=== PATIENT | male | born 1930 | race Caucasian/White ===

== ENCOUNTER 2017-06-01 11:06 | Inpatient (IN) | payer MEDICARE ==
--- NOTE | 2017-06-01 12:11 | RAD ---
PORTABLE CHEST: Date: 06/01/17 HISTORY: Altered mental status. Chest pain. Weakness. COMPARISON: 03/30/15. FINDINGS: Arm overlies the left upper lobe. The heart size is enlarged. Internal defibrillator device is presen t. The lungs are clear of any infiltrative process. IMPRESSION: Cardiomegaly. No acute changes. POS: [facility]
[2017-06-01 12:27] LABS: #Eosinphils 0.1 thou/uL (0.0-0.7); #Monocytes 0.8 thou/uL (0.11-0.59); #Neutrophils 13.9 thou/uL (1.40-6.50); %Basophils 0.3 % (0.0-1.0); %Eosinophils 0.7 % (0.0-10.0); %Lymphocytes 6.1 % (21.0-51.0); %Monocytes 5.1 % (0.0-10.0); Hematocrit 43.4 % (42.0-52.0); Mean Platelet Volume 7.4 fL (7.4-10.4); Red Blood Cell (RBC) Count 4.71 mill/uL (4.70-6.10); White Blood Cell (WBC) Count 15.8 thou/uL (4.8-10.8)
[2017-06-01 12:55] LABS: ALT (SGPT) 17 U/L (8-55); AST (SGOT) 31 U/L (5-34); Acetaminophen Less than 6.0 mcg/mL (10.0-30.0); Alkaline Phosphatase 62 U/L (40-150); Anion Gap 11 mmol/L (10-20); BUN (Urea Nitrogen) 22 mg/dL (8.4-25.7); Bilirubin, Total 1.1 mg/dL (0.2-1.2); CK (CPK) 214 U/L (30-200); Calc. Creatinine Clearance 0 mL/min (70-130); Carbon Dioxide 30 mmol/L (23-31); Chloride 101 mmol/L (98-107); Estimated GFR-MDRD 34; Globulin 3.2 g/dL (2.4-3.5); Protein, Total 7.7 g/dL (5.8-8.1); Salicylate Less than 8.0 mg/dL (15.0-30.0)
[2017-06-01 12:58] LABS: Troponin I 0.063 ng/mL (< 0.028)
[2017-06-01 13:10] LABS: Lactic Acid - Sepsis 1.5 mmol/L (0.5-2.2)
--- NOTE | 2017-06-01 13:18 | CT ---
CT BRAIN WITHOUT CONTRAST: Date: 06/01/17 HISTORY: Altered mental status. COMPARISON: CT brain dated 02/16/15. FINDINGS: Large dystrophic calcification in the right basal ganglia is similar. No hemorrhage. No large volume territorial infarct given the limitation of motion throughout the vertex. Moderate atrophy. Moderate microvascular ischemic changes, chronic. Paranasal sinuses and mastoids are clear. The orbits are unremarkable. IMPRESSION: Within the limits of this motion artifact examination, no acute intracranial abnormality. POS: [facility]
[2017-06-01] MEDS ORDERED: Azithromycin 500 MG VIAL ONE (14:12)
[2017-06-01] MEDS ORDERED: Bisacodyl 5 MG TAB PO PRN (16:35)
[2017-06-01] MEDS ORDERED: HYDROcodone/Acetaminophen 5/325 mg Tablet PO PRN (16:35)
[2017-06-01] MEDS ORDERED: traMADol HCl 50 MG TAB PO PRN (16:35)
[2017-06-01] MEDS ORDERED: Acetaminophen 325 MG TAB PO PRN (16:35)
[2017-06-01] MEDS ORDERED: Ondansetron HCl/PF 4 MG/2 ML Vial IVP PRN (16:35)
[2017-06-01] MEDS ORDERED: Nitroglycerin 0.4 MG TAB (25 Tab Bottle) SL PRN (16:35)
[2017-06-01] MEDS ORDERED: hydrALAZINE 20 MG/ML VIAL SLOW IVP PRN (16:35)
[2017-06-01] MEDS ORDERED: Dextrose 5% in Water 1,000 ML IV PRN (16:38)
[2017-06-01] MEDS ORDERED: Insulin Regular 300 UNITS/3 ML VIAL SC PRN ×2 (16:38)
[2017-06-01] MEDS ORDERED: Dextrose 50% Abboject 50 ML SYRINGE SLOW IVP PRN (16:38)
[2017-06-01] MEDS ORDERED: Sodium Chloride 0.9% 1,000 ML IV SCH (16:45)
--- NOTE | 2017-06-01 18:21 | HP ---
DATE OF ADMISSION: 06/01/2017 PRIMARY CARE PHYSICIAN: Danny Srinivasan M.D. REASON FOR ADMISSION: Altered mental status, suspected pneumonia. HISTORY OF PRESENT ILLNESS: Mr. Edinson Dickey is an 86-year-old male with a past medical history o f diabetes mellitus type 2, hypertension, hyperlipidemia, and coronary artery disease who presents to the emergency room after his daughter stated he was having altered mental status earlier this mornin g. He was evaluated by home health nurse at which time noted that he had some mild hypoxia with kurtis lar oximetry readings of 88%-90%. The daughter states he has not had any fevers. No nausea, vomitin g or diarrhea. He states that he did have mild stomach discomfort after his PCP changed him to metfo rmin approximately a week ago. No shortness of breath or chest pain reported. According to the daug hter, the patient is awake, alert, and oriented x3. He is ambulatory and does much of his activities of daily living. Denies any sick contacts or productive cough. Here in the emergency room, the pat ient remained mildly altered. Initial radiographic examination showed some opacities in his left upp er lung field. The patient's daughter states he does not have any difficulty swallowing. He is now being admitted to the telemetry floor for further evaluation. Currently, he is resting comfortably with no acute symptoms. PAST MEDICAL HISTORY: 1. Diabetes mellitus type 2. 2. Hypertension. 3. Hyperlipidemia. 4. Coronary artery disease. 5. History of urinary tract infection. PAST SURGICAL HISTORY: 1. Pacemaker placement in 2013. 2. Bilateral cataracts. CODE STATUS: He is FULL CODE. The patient's daughter is at bedside. SOCIAL HISTORY: The patient denies any current tobacco use; however, he smoked for approximately 20 years, 2 packs per day and he quit approximately 10 years ago. No alcohol or illicit drug use. CURRENT MEDICATIONS: 1. Metformin 500 mg p.o. b.i.d. 2. Glyburide 1 tablet p.o. daily. 3. Flomax 0.4 mg p.o. daily. 4. Zocor 80 mg p.o. at bedtime. 5. Proscar 5 mg p.o. daily. 6. Coreg 3.125 mg p.o. b.i.d. 7. Aspirin 81 mg p.o. daily. 8. Amlodipine 5 mg p.o. daily. 9. Ambien 10 mg p.o. at bedtime. 10. Altace 5 mg p.o. b.i.d. 11. Lasix 20 mg p.o. daily. 12. Colace 50 mg p.o. b.i.d. ALLERGIES: PENICILLIN. FAMILY HISTORY: Reviewed and noncontributory. REVIEW OF SYSTEMS: The following complete review of systems was negative, unless otherwise mentioned in the HPI or below: Constitutional: Weight loss or gain, sense of well-being, ability to conduct usual activities, exerc ise tolerance. Skin/Breast: Rash, itching, changes in hair growth or loss, nail changes, breast lumps, tenderness, swelling, nipple discharge. Eyes: Vision, double vision, tearing, blind spots, pain. ENT/Mouth: Headaches (location, time of onset, duration, precipitating factors), vertigo, lightheade dness, injury. Vision, double vision, tearing, blind spots, pain, nose bleeding, colds, obstruction, discharge, dental difficulties, gingival bleeding, dentures, neck stiffness, pain, tenderness, masses in thyroid or other areas Cardiovascular: Precordial pain, substernal distress, palpitations, syncope, dyspnea on exertion, or thopnea, nocturnal paroxysmal dyspnea, edema, cyanosis, hypertension, heart murmurs, varicosities, ph lebitis, claudication. Respiratory: Pain, shortness of breath, wheezing, stridor, cough, hemoptysis, fever or night sweats Gastrointestinal: Poor appetite, dysphagia, indigestion, abdominal pain, heartburn, eructation, naus ea, vomiting, hematemesis, jaundice, constipation, or diarrhea, abnormal stools (kurt-colored, tarry, bloody, greasy, foul smelling), flatulence, hemorrhoids, recent changes in bowel habits. Genitourinary: Urgency, frequency, dysuria, nocturia, hematuria, polyuria, oliguria, unusual (or debbie nge in) color of urine, stones, hesitancy, change in size of stream, dribbling, acute retention or in continence, libido, potency. Musculoskeletal: Pain, swelling, redness or heat of muscles or joints, limitation, of motion, muscul ar weakness, atrophy, cramps. Neurologic/Psychiatric: Convulsions, paralyses, tremor, incoordination, paraesthesias, difficulties with memory of speech, sensory or motor disturbances, or muscular coordination (ataxia, tremor), emot ional problems, anxiety, depression, previous psychiatric care, unusual perceptions, hallucinations. Allergy/Immunologic: Skin rash, anemia, bleeding tendency, polydipsia, polyuria, intolerance to heat or cold. PHYSICAL EXAMINATION: CONSTITUTIONAL/VITAL SIGNS: Blood pressure most recently 128/55, pulse is 80, O2 saturation is 97% o n room air, temperature 98.0, and respirations are 20. HEENT: Pupils are equal, round and reactive to light and accommodation. Extraocular muscles are int act. Oral: Moist oral mucosa. No lesions. RESPIRATORY: Equal chest wall expansion. He does have some rhonchi to the left upper lobe as well a s the left lower lobe and right lower lobe. No accessory muscle use. CARDIOVASCULAR: S1, S2 present. No murmurs, gallops or rubs. Pacemaker pocket present. GASTROINTESTINAL: Soft, nontender, nondistended. Bowel sounds are present in all 4 quadrants. MUSCULOSKELETAL: Good range of motion in all 4 extremities. No clubbing, no cyanosis. LYMPHATICS: No swollen or painful cervical or axillary lymph nodes. NEUROLOGIC: No ptosis, no facial asymmetry, no tongue deviation or jaw protrusion, no focal deficits . PSYCHIATRIC: He is awake and alert. He is oriented to person and place. SKIN: Normal skin turgor. LABORATORY DATA AND X-RAY FINDINGS: 1. Laboratory values taken in the emergency room and reviewed by me showed WBC 15.8, hemoglobin 14.6 , hematocrit 43.4, platelet count 166,000. Chemistry shows sodium of 138, potassium 4.2, chloride 10 1, carbon dioxide 30, anion gap 11, BUN is 22, creatinine 1.9. GFR 34, glucose is 146. Lactic acid is 1.5, calcium 10, total bilirubin 1.1, AST and ALT are 31 and 17, alkaline phosphatase is 62, AST 1 4, troponin is 0.063. BNP is 347.7. Tox screen shows salicylate less than 8. Acetaminophen less th an 6. 2. CT of the brain done in the emergency room revealed no acute intracranial abnormalities. 3. X-ray of the chest revealed cardiomegaly. There are no acute changes. There is a defibrillator device present. 4. EKG done in the emergency room reviewed by me revealed a left bundle branch block revealed normal sinus rhythm. He does have some inverted T waves in the lateral leads. ASSESSMENT AND PLAN: Mr. Edinson Dickey is an 86-year-old male with past medical history of diabete s mellitus type 2, hypertension, and hyperlipidemia who presents to the emergency room with a questio n of altered mental status which is now began to resolve. 1. Altered mental status. At this time, the patient will be admitted to the telemetry floor. His a ltered mental status may be secondary to an underlying infectious process. Start the patient on Leva lincoln therapy. Blood cultures have been ordered and we will adjust antibiotic therapy accordingly. W e will check urinalysis as well as a urine culture. At this time, he does not have any evidence of c ardiovascular accident. If he continues to have any further mental status changes, we will obtain a repeat CT scan of the brain. 2. Acute kidney injury. It is most likely secondary to an underlying infectious process as well as dehydration. We will continue with IV fluids and monitor. 3. Indeterminate troponin, it is most likely secondary to demand ischemia from underlying infectious processes. We will continue to trend and check echocardiogram. 4. Resume selected home medications. We will discontinue his metformin. 5. Diabetic diet. 6. Fall precautions. 7. P.r.n. order set. 8. FULL CODE. 9. I have explained all this to the patient's family at bedside. They are agreeable to the plan of treatment. All questions have been answered. The patient's further hospital course will be dictated by his clinical course while here.
[2017-06-01 18:55] LABS: Troponin I 0.075 ng/mL (< 0.028)
[2017-06-01] MEDS: Atorvastatin Calcium 40 MG TAB PO SCH (21:05)
[2017-06-01] MEDS: Carvedilol 3.125 MG TAB PO SCH (21:05)
[2017-06-01] MEDS: glyBURIDE 5 MG TAB PO SCH (21:05)
[2017-06-01 22:17] LABS: Troponin I 0.064 ng/mL (< 0.028)
[2017-06-02 04:59] LABS: Anion Gap 11 mmol/L (10-20); BUN (Urea Nitrogen) 23 mg/dL (8.4-25.7); Calc. Creatinine Clearance 51 mL/min (70-130); Calcium 9.1 mg/dL (7.8-10.44); Carbon Dioxide 28 mmol/L (23-31); Chloride 104 mmol/L (98-107); Estimated GFR-MDRD 40
[2017-06-02 05:04] LABS: #Eosinphils 0.1 thou/uL (0.0-0.7); #Lymphocytes 1.2 thou/uL (1.20-3.40); #Monocytes 0.9 thou/uL (0.11-0.59); #Neutrophils 10.8 thou/uL (1.40-6.50); %Basophils 0.3 % (0.0-1.0); %Eosinophils 0.7 % (0.0-10.0); %Lymphocytes 9.3 % (21.0-51.0); Mean Platelet Volume 7.8 fL (7.4-10.4); Red Blood Cell (RBC) Count 3.77 mill/uL (4.70-6.10); White Blood Cell (WBC) Count 13.1 thou/uL (4.8-10.8)
[2017-06-02 07:29] VITALS: BMI 32.6
[2017-06-02] MEDS: Aspirin 81 mg Enteric Coated Tablet PO SCH (09:48)
[2017-06-02] MEDS: Amlodipine 5 MG TAB PO SCH (09:48)
[2017-06-02] MEDS: Tamsulosin HCl 0.4 MG CAP PO SCH (09:48)
[2017-06-02] MEDS: Carvedilol 3.125 MG TAB PO SCH (09:49)
[2017-06-02] MEDS: Finasteride 5 MG TAB PO SCH (09:49)
[2017-06-02] MEDS: Enoxaparin Sodium 40 MG/0.4 ML SYRINGE SC SCH (09:49)
[2017-06-02 11:48] LABS: Bacteria/HPF None Seen HPF (None Seen); Bilirubin Negative (Negative); Blood, Urine Trace (Negative); Glucose, Urine (Dipstick) Negative (Negative); Hyaline Casts/LPF 0-3 HYALINE CAST LPF (0-3 Hyaline); Ketone, Urine Negative (Negative); Nitrite Negative (Negative); Protein, Urine (Dipstick) Negative (Neg-Trace); Squamous Epithelial None Seen HPF (0-3); Urobilinogen 0.2 mg/dL (0.2-1.0); WBC/HPF None Seen HPF (0-3)
--- NOTE | 2017-06-02 12:53 | PDOC.PN ---
- Subjective Encounter Start Date: 06/02/17 Encounter Start Time: 07:40 Pt seen for followup re; acute encephalopathy. Denies chest pain, shortness of breath, fevers or chills. Complains of cough with sputum. - Objective MAR Reviewed: Yes Vital Signs & Weight: Vital Signs (12 hours) Temp Pulse Resp BP Pulse Ox 06/02/17 11:20 98.2 F 63 18 120/58 L 95 06/02/17 11:15 95 06/02/17 08:00 98 F 62 16 06/02/17 07:25 98 F 62 16 133/66 95 06/02/17 04:00 98.6 F 63 18 129/58 L 94 L Weight Weight 254 lb 2 oz I&O: 06/01/17 06/02/17 06/03/17 06:59 06:59 06:59 Intake Total 780 Balance 780 Result Diagrams: 06/02/17 04:21 06/02/17 04:21 Additional Labs: Accuchecks 06/02/17 06/02/17 06/01/17 10:55 05:45 20:41 POC Glucose 93 86 145 H 06/01/17 17:18 POC Glucose 111 H EKG Reviewed by me: Yes (Tele: NSR) Phys Exam - Physical Examination Constitutional: NAD HEENT: PERRLA, moist MMs, sclera anicteric, oral pharynx no lesions Neck: no nodes, no JVD, supple, full ROM Respiratory: no wheezing, no rales, no rhonchi, clear to auscultation bilateral Cardiovascular: RRR, no rub Gastrointestinal: soft, non-tender, no distention, positive bowel sounds Neurological: moves all 4 limbs Psychiatric: normal affect Deviation from normal: Oriented to person and place, not to time Skin: no rash, normal turgor, cap refill <2 seconds Dx/Plan (1) Acute encephalopathy Code(s): G93.40 - ENCEPHALOPATHY, UNSPECIFIED Status: Acute (2) URTI (acute upper respiratory infection) Code(s): J06.9 - ACUTE UPPER RESPIRATORY INFECTION, UNSPECIFIED Status: Suspected (3) CHF (congestive heart failure) Code(s): I50.9 - HEART FAILURE, UNSPECIFIED Status: Chronic (4) Diabetes mellitus Code(s): E11.9 - TYPE 2 DIABETES MELLITUS WITHOUT COMPLICATIONS Status: Chronic (5) Hypertension Code(s): I10 - ESSENTIAL (PRIMARY) HYPERTENSION Status: Chronic - Plan continue antibiotics, PT/OT, out of bed/ambulate, DVT proph w/lovenox * . Continue antibiotics, await cultures. Monitor vital signs, titrate antihypertensives as needed. Continue accuchecks, insulin sliding scale. Ambulate pt. Review of Systems - Review of Systems Constitutional: negative: fever, chills, sweats, weakness, malaise Respiratory: Cough, Sputum. negative: Dry, Shortness of Breath, Hemoptysis, SOB with Excertion, Pleuritic Pain, Wheezing Cardiovascular: negative: chest pain, palpitations, orthopnea, paroxysmal nocturnal dyspnea, edema, light headedness Gastrointestinal: negative: Nausea, Vomiting, Abdominal Pain, Diarrhea, Constipation, Melena, Hematochezia Genitourinary: negative: Dysuria, Frequency, Incontinence, Hematuria, Retention - Medications/Allergies Allergies/Adverse Reactions: Allergies Allergy/AdvReac Type Severity Reaction Status Date / Time Penicillins Allergy Severe Verified 02/12/15 20:38 Medications: Current Medications Acetaminophen (Tylenol) 650 mg PO Q4H PRN PRN Reason: Headache/Fever or Pain Hydrocodone Bitart/Acetaminophen ([place] 5/325) 1 tab PO Q4H PRN PRN Reason: Moderate Pain (4-6) Amlodipine Besylate (Norvasc) 5 mg PO DAILY [facility] Last Admin: 06/02/17 09:48 Dose: 5 mg Aspirin (Ecotrin) 81 mg PO DAILY [facility] Last Admin: 06/02/17 09:48 Dose: 81 mg Atorvastatin Calcium (Lipitor) 40 mg PO HS [facility] Last Admin: 06/01/17 21:05 Dose: 40 mg Bisacodyl (Dulcolax) 10 mg PO DAILYPRN PRN PRN Reason: Constipation Carvedilol (Coreg) 3.125 mg PO BID [facility] Last Admin: 06/02/17 09:49 Dose: 3.125 mg Dextrose/Water (Dextrose 50%) 25 gm SLOW IVP PRN PRN PRN Reason: Hypoglycemia Enoxaparin Sodium (Lovenox) 40 mg SC 0900 [facility] Last Admin: 06/02/17 09:49 Dose: 40 mg Finasteride (Proscar) 5 mg PO DAILY [facility] Last Admin: 06/02/17 09:49 Dose: 5 mg Glucagon (Glucagon) 1 mg IM PRN PRN PRN Reason: Hypoglycemia Glyburide (Diabeta) 5 mg PO QPM [facility] Last Admin: 06/01/17 21:05 Dose: 5 mg Hydralazine HCl (Apresoline) 10 mg SLOW IVP Q4H PRN PRN Reason: Systolic BP > 180 Dextrose/Water (D5w) 1,000 mls @ 0 mls/hr IV .Q0M PRN; As Directed PRN Reason: Hypoglycemia Levofloxacin 500 mg/ Device 100 mls @ 100 mls/hr IVPB Q2D@1600 [facility] Insulin Human Regular (Humulin R) 0 units SC .MILD SLIDING SCALE PRN PRN Reason: Mild Correctional Scale Insulin Human Regular (Humulin R) 0 units SC .BEDTIME SLIDING SC PRN PRN Reason: Bedtime Correctional Scale Nitroglycerin (Nitrostat) 0.4 mg SL Q5MIN PRN PRN Reason: Chest Pain Ondansetron HCl (Zofran) 4 mg IVP Q6H PRN PRN Reason: Nausea/Vomiting Tamsulosin HCl (Flomax) 0.4 mg PO DAILY [facility] Last Admin: 06/02/17 09:48 Dose: 0.4 mg Tramadol HCl (Ultram) 50 mg PO Q4H PRN PRN Reason: Moderate Pain (4-6)
--- NOTE | 2017-06-02 17:36 | CON ---
DATE OF CONSULT: Patient is an unfortunate 86-year-old gentleman who presented with altered mental status and possible pneumonia. The patient has an apparent history of coronary artery disease. He has also a history of an ischemic cardiomyopathy. The patient apparently was brought in when he became more confused. The patient denies having any chest pain, palpitations, or dyspnea. PAST MEDICAL HISTORY: 1. Coronary artery disease. 2. Hypertension. 3. Hyperlipidemia. PAST SURGICAL HISTORY: He has a history of AICD placement SOCIAL HISTORY: Nonsmoker MEDICATIONS ON ADMISSION: See nursing list. ALLERGIES: PENICILLIN. REVIEW OF SYSTEMS: The patient is confused and unable to answer questions appropriately. PHYSICAL EXAMINATION: GENERAL: This is a confused gentleman in no acute distress with a blood pressure 143/65. NECK: No jugular venous distention. LUNGS: Clear to auscultation. HEART: Regular rate and rhythm, normal S1, S2 with a II/ systolic murmur. ABDOMEN: Distended. EXTREMITIES: Showed trace edema. SKIN: Warm and dry. NEUROLOGIC: Nonfocal. VASCULAR: Radial pulses are 2+. LABORATORY DATA: White blood count was 13.1, hemoglobin 11.9, hematocrit 35.0, and platelets 149. Sodium is 139, potassium 3.7, chloride 104, bicarbonate 20, BUN 23, creatinine 1.65, troponin 0.64. His EKG revealed normal sinus rhythm with an ST -T wave suggestive of lateral ischemia. Chest x-ray revealed cardiomegaly, otherwise unremarkable. traffic monitor specialist revealed nonsustained ventricular tachycardia. IMPRESSION: 1. Nonsustained ventricular tachycardia. 2. History of coronary artery disease. 3. History of cardiomyopathy. 4. History of AICD placement. 5. Diabetes mellitus. 6. Hypertension. This gentleman presents with altered mental status. He has a history of ischemic cardiomyopathy, also has placement of implantable cardiac defibrillator. From a cardiac standpoint, we will check an echocardiogram and increase the dose of his beta mary ann. He will continue to be treated with IV antibiotics. We will follow this patient with you through his hospitalization [facility]
[2017-06-02] MEDS: Atorvastatin Calcium 40 MG TAB PO SCH (20:44)
[2017-06-02] MEDS: glyBURIDE 5 MG TAB PO SCH (20:44)
[2017-06-02] MEDS: Carvedilol 6.25 MG TAB PO SCH (20:44)
[2017-06-03] MEDS: Carvedilol 6.25 MG TAB PO SCH ×2 (07:57→20:24)
[2017-06-03] MEDS: Finasteride 5 MG TAB PO SCH (07:57)
[2017-06-03] MEDS: Tamsulosin HCl 0.4 MG CAP PO SCH (07:57)
[2017-06-03 07:58] LABS: #Eosinphils 0.2 thou/uL (0.0-0.7); #Lymphocytes 0.9 thou/uL (1.20-3.40); #Monocytes 0.5 thou/uL (0.11-0.59); #Neutrophils 7.6 thou/uL (1.40-6.50); %Basophils 0.2 % (0.0-1.0); %Eosinophils 2.3 % (0.0-10.0); %Lymphocytes 9.8 % (21.0-51.0); %Monocytes 5.8 % (0.0-10.0); Hematocrit 37.6 % (42.0-52.0); Mean Platelet Volume 7.8 fL (7.4-10.4); Red Blood Cell (RBC) Count 4.06 mill/uL (4.70-6.10); White Blood Cell (WBC) Count 9.3 thou/uL (4.8-10.8)
[2017-06-03] MEDS: Amlodipine 5 MG TAB PO SCH (07:58)
[2017-06-03] MEDS: Aspirin 81 mg Enteric Coated Tablet PO SCH (07:58)
[2017-06-03] MEDS: Enoxaparin Sodium 40 MG/0.4 ML SYRINGE SC SCH (07:58)
[2017-06-03 08:02] LABS: Anion Gap 13 mmol/L (10-20); BUN (Urea Nitrogen) 19 mg/dL (8.4-25.7); Calc. Creatinine Clearance 58 mL/min (70-130); Calcium 9.3 mg/dL (7.8-10.44); Carbon Dioxide 23 mmol/L (23-31); Chloride 105 mmol/L (98-107); Estimated GFR-MDRD 46
--- NOTE | 2017-06-03 11:34 | PDOC.PN ---
- Subjective Encounter Start Date: 06/03/17 Encounter Start Time: 07:20 Pt seen for followup of acute encephalopathy. No complaints today. - Objective MAR Reviewed: Yes Vital Signs & Weight: Vital Signs (12 hours) Temp Pulse Resp BP Pulse Ox 06/03/17 08:15 98.0 F 70 16 06/03/17 07:58 70 06/03/17 07:20 98 F 61 18 120/99 H 93 L 06/03/17 05:02 98.4 F 70 18 142/56 H 97 06/02/17 23:52 97.8 F 66 18 140/62 92 L Weight Admit Weight 254 lb Weight 251 lb 11.2 oz I&O: 06/02/17 06/03/17 06/04/17 06:59 06:59 06:59 Intake Total 1520 Balance 1520 Result Diagrams: 06/03/17 07:36 06/03/17 07:36 Additional Labs: Accuchecks 06/03/17 06/03/17 06/02/17 10:49 05:53 20:42 POC Glucose 174 H 71 76 06/02/17 17:15 POC Glucose 84 EKG Reviewed by me: Yes (Tele: A-paced) Phys Exam - Physical Examination Obese HEENT: moist MMs Neck: supple Respiratory: clear to auscultation bilateral Cardiovascular: RRR Gastrointestinal: soft Neurological: moves all 4 limbs Psychiatric: normal affect Skin: no rash Dx/Plan (1) Acute encephalopathy Code(s): G93.40 - ENCEPHALOPATHY, UNSPECIFIED Status: Acute (2) URTI (acute upper respiratory infection) Code(s): J06.9 - ACUTE UPPER RESPIRATORY INFECTION, UNSPECIFIED Status: Suspected (3) CHF (congestive heart failure) Code(s): I50.9 - HEART FAILURE, UNSPECIFIED Status: Chronic (4) Diabetes mellitus Code(s): E11.9 - TYPE 2 DIABETES MELLITUS WITHOUT COMPLICATIONS Status: Chronic (5) Hypertension Code(s): I10 - ESSENTIAL (PRIMARY) HYPERTENSION Status: Chronic (6) NSVT (nonsustained ventricular tachycardia) Code(s): I47.2 - VENTRICULAR TACHYCARDIA Status: Resolved - Plan continue antibiotics, PT/OT, out of bed/ambulate, DVT proph w/lovenox * . Continue IV antibiotics, await blood cultures. Appreciate cardiology input, beta mary ann dose increased due to NSVT. Ambulate patient. Review of Systems - Review of Systems Respiratory: Cough, Sputum. negative: Dry, Shortness of Breath, Hemoptysis, SOB with Excertion, Pleuritic Pain, Wheezing Cardiovascular: negative: chest pain, palpitations, orthopnea, paroxysmal nocturnal dyspnea, edema, light headedness Genitourinary: negative: Dysuria, Frequency, Incontinence, Hematuria, Retention - Medications/Allergies Allergies/Adverse Reactions: Allergies Allergy/AdvReac Type Severity Reaction Status Date / Time Penicillins Allergy Severe Verified 02/12/15 20:38 Medications: Current Medications Acetaminophen (Tylenol) 650 mg PO Q4H PRN PRN Reason: Headache/Fever or Pain Hydrocodone Bitart/Acetaminophen ([place] 5/325) 1 tab PO Q4H PRN PRN Reason: Moderate Pain (4-6) Amlodipine Besylate (Norvasc) 5 mg PO DAILY [facility] Last Admin: 06/03/17 07:58 Dose: 5 mg Aspirin (Ecotrin) 81 mg PO DAILY [facility] Last Admin: 06/03/17 07:58 Dose: 81 mg Atorvastatin Calcium (Lipitor) 40 mg PO HS [facility] Last Admin: 06/02/17 20:44 Dose: 40 mg Bisacodyl (Dulcolax) 10 mg PO DAILYPRN PRN PRN Reason: Constipation Carvedilol (Coreg) 6.25 mg PO BID [facility] Last Admin: 06/03/17 07:57 Dose: 6.25 mg Dextrose/Water (Dextrose 50%) 25 gm SLOW IVP PRN PRN PRN Reason: Hypoglycemia Enoxaparin Sodium (Lovenox) 40 mg SC 0900 [facility] Last Admin: 06/03/17 07:58 Dose: 40 mg Finasteride (Proscar) 5 mg PO DAILY [facility] Last Admin: 06/03/17 07:57 Dose: 5 mg Glucagon (Glucagon) 1 mg IM PRN PRN PRN Reason: Hypoglycemia Glyburide (Diabeta) 5 mg PO QPM [facility] Last Admin: 06/02/17 20:44 Dose: 5 mg Hydralazine HCl (Apresoline) 10 mg SLOW IVP Q4H PRN PRN Reason: Systolic BP > 180 Dextrose/Water (D5w) 1,000 mls @ 0 mls/hr IV .Q0M PRN; As Directed PRN Reason: Hypoglycemia Levofloxacin 500 mg/ Device 100 mls @ 100 mls/hr IVPB Q2D@1600 [facility] Insulin Human Regular (Humulin R) 0 units SC .MILD SLIDING SCALE PRN PRN Reason: Mild Correctional Scale Insulin Human Regular (Humulin R) 0 units SC .BEDTIME SLIDING SC PRN PRN Reason: Bedtime Correctional Scale Nitroglycerin (Nitrostat) 0.4 mg SL Q5MIN PRN PRN Reason: Chest Pain Ondansetron HCl (Zofran) 4 mg IVP Q6H PRN PRN Reason: Nausea/Vomiting Tamsulosin HCl (Flomax) 0.4 mg PO DAILY [facility] Last Admin: 06/03/17 07:57 Dose: 0.4 mg Tramadol HCl (Ultram) 50 mg PO Q4H PRN PRN Reason: Moderate Pain (4-6)
[2017-06-03] MEDS: Atorvastatin Calcium 40 MG TAB PO SCH (20:24)
[2017-06-03] MEDS: glyBURIDE 5 MG TAB PO SCH (20:24)
--- NOTE | 2017-06-04 07:36 | DIS ---
TRANSFER OF CARE NOTE DISCHARGE DISPOSITION: Home. PRIMARY CARE PROVIDER: Dr. Danny Srinivasan FINAL DIAGNOSES: 1. Acute encephalopathy, resolved. 2. Acute upper respiratory infection. 3. Nonsustained V-tach. 4. Coronary artery disease. 5. Hypertension. 6. Diabetes mellitus type 2. DISCHARGE MEDICATIONS: Colace 50 mg twice a day, tramadol 50 mg p.o. b.i.d. p.r.n., metformin 850 mg p.o. b.i.d., tolterodine tartrate 4 mg p.o. daily, Flomax 0.4 mg daily, gabapentin 300 mg at bedtime , Zocor 80 mg a day, Levaquin 500 mg a day for 7 days, Coreg 6.25 mg twice a day. ALLERGIES: PENICILLINS. FOLLOWUP: Blood cultures are no growth at 48 hours as is urine culture. HOSPITAL COURSE: The patient admitted to [facility] with altered mental status, suspected pneumonia. On admission to the hospital, his physical exam was not remarkable. La boratory revealed elevated white count of 15.8, platelet count 166,000, hemoglobin 14.6. Initial com p metabolic profile revealed a creatinine of 1.9, BUN 22, blood sugar 146. Electrolytes are balanced . Troponin 0.06, 0.075 0.064. Blood and urine cultures were started. Chest x-ray was clear. The p atient was placed on IV Levaquin. He had an episode of nonsustained ventricular tachycardia during h is hospital stay, was seen in consultation by Dr. Raymond Worley, Cardiology. His Coreg was increased from 3.125 twice a day to 6.25 twice a day. Echocardiogram revealed EF of 60-65%. The patient impr belen steadily during his hospital stay. The physical exam is still unremarkable. Creatinine dropped to 1.46. Blood sugars stayed in the 71-174 range. His chest is clear. Vital signs are stable. He is being discharged home for followup in [address] Danny Srinivasan. Prescriptions have been written for Coreg 6.25 twice a day and for Levaquin 500 mg once a day for 7 days. No procedures were done d uring this hospital stay.
[2017-06-04] MEDS: Amlodipine 5 MG TAB PO SCH (08:25)
[2017-06-04] MEDS: Carvedilol 6.25 MG TAB PO SCH (08:26)
[2017-06-04] MEDS: Finasteride 5 MG TAB PO SCH (08:26)
[2017-06-04] MEDS: Aspirin 81 mg Enteric Coated Tablet PO SCH (08:26)
[2017-06-04] MEDS: Tamsulosin HCl 0.4 MG CAP PO SCH (08:26)
[2017-06-04] MEDS: Enoxaparin Sodium 40 MG/0.4 ML SYRINGE SC SCH (08:26)
[2017-06-04 12:08] VITALS: BP 115/57; TEMP 98.2
== END 2017-06-04 13:18 | disposition home or self-care (01) | DRG 152 ==
LOC: ERS 11:06 → 2SE 16:56
PROVIDERS: ADMIT Hospitalist; ATTEND Hospitalist
DX: J06.9 Acute upper respiratory infection, unspecified (principal); G93.40 Encephalopathy, unspecified; I47.2 Ventricular tachycardia; I24.8 Other forms of acute ischemic heart disease; N17.9 Acute kidney failure, unspecified; E11.9 Type 2 diabetes mellitus without complications; E86.0 Dehydration; I44.7 Left bundle-branch block, unspecified; I10 Essential (primary) hypertension; E78.5 Hyperlipidemia, unspecified; I25.10 Atherosclerotic heart disease of native coronary artery without angina pectoris; Z95.0 Presence of cardiac pacemaker; Z87.891 Personal history of nicotine dependence; Z79.84 Long term (current) use of oral hypoglycemic drugs; Z79.82 Long term (current) use of aspirin; Z88.0 Allergy status to penicillin; I25.5 Ischemic cardiomyopathy; I50.9 Heart failure, unspecified
CPT/HCPCS: 36415; 36416; 70450; 71010; 80048; 80053; 80307; 81003; 81015; 82553; 83605; 83880; 84443; 84484; 85025; 87040; 87086; 93005; 93306; 96365; 96375; J0456; J0696; J1650; J1956

== ENCOUNTER 2017-07-20 16:11 | Observation (INO) | payer MEDICARE ==
--- NOTE | 2017-07-20 16:32 | CT ---
NONCONTRAST CT HEAD 07/20/17 HISTORY: Left sided facial droop and left sided weakness. Slurred speech. Last time patient was noted to be no rmal was at approximately 1500 hours. Altered mental status. COMPARISON: 06/01/17. FINDINGS: There is a dense calcification seen within the right basal ganglia stable from prior exam. Again note d are mild chronic small vessel ischemic changes and cerebral volume loss. There is no evidence of an acute cortical infarction, hemorrhage, mass effect or midline shift. Ventricular system is normal in size, shape and position for the degree of sulcal atrophy. There has been no interval change from pr ior exam. IMPRESSION: No acute intracranial abnormality demonstrated. The above findings were discussed with Dr. Prema Mercedes's nurse in the Emergency Department on 07/20 at 1623 hours. POS: [facility]
[2017-07-20 16:42] LABS: #Eosinphils 0.2 thou/uL (0.0-0.7); #Monocytes 0.4 thou/uL (0.11-0.59); %Basophils 0.6 % (0.0-1.0); %Eosinophils 3.7 % (0.0-10.0); %Lymphocytes 17.4 % (21.0-51.0); %Monocytes 6.7 % (0.0-10.0); %Neutrophils 71.6 % (42.0-75.0); Hemoglobin 13.4 g/dL (14.0-18.0); Mean Corpuscular HGB CONC 31.8 g/dL (32.0-36.0); Mean Corpuscular Hemoglobin 30.1 pg (27.0-31.0); Mean Corpuscular Volume 94.6 fl (80.0-94.0); Mean Platelet Volume 7.3 fL (7.4-10.4); Platelet Count 175 thou/uL (130-400); RBC Distribution Width 12.8 % (11.5-14.5); Red Blood Cell (RBC) Count 4.44 mill/uL (4.70-6.10); White Blood Cell (WBC) Count 5.5 thou/uL (4.8-10.8)
[2017-07-20 16:50] LABS: PTT 30.6 SEC (22.9-36.1); Prothrombin Time 13.4 SEC (12.0-14.7)
--- NOTE | 2017-07-20 17:00 | RAD ---
PORTABLE CHEST ONE VIEW: 07/20/17 at 4:39 p.m. HISTORY: Altered mental status, slurred speech, left sided facial droop and left sided weakness. FINDINGS: comparison made with exam of 06/01/17. Left sided AICD remains in place. The heart is enlarged. The aorta is tortuous. The lungs are expande d without focal areas of consolidation, pneumothorax, faisal pulmonary edema or pleural effusions. IMPRESSION: No radiographic evidence of acute cardiopulmonary process. POS: [facility]
[2017-07-20 17:02] LABS: ALT (SGPT) 11 U/L (8-55); AST (SGOT) 24 U/L (5-34); Alkaline Phosphatase 57 U/L (40-150); Anion Gap 12 mmol/L (10-20); BUN (Urea Nitrogen) 22 mg/dL (8.4-25.7); Bilirubin, Total 0.5 mg/dL (0.2-1.2); CK (CPK) 71 U/L (30-200); Calc. Creatinine Clearance 0 mL/min (70-130); Calcium 9.5 mg/dL (7.8-10.44); Carbon Dioxide 28 mmol/L (23-31); Chloride 103 mmol/L (98-107); Estimated GFR-MDRD 43; Globulin 2.6 g/dL (2.4-3.5); Glucose 131 mg/dL (83-110); Potassium 4.6 mmol/L (3.5-5.1); Protein, Total 6.6 g/dL (5.8-8.1); Sodium 138 mmol/L (136-145)
[2017-07-20 17:04] LABS: Troponin I 0.033 ng/mL (< 0.028)
[2017-07-20] MEDS ORDERED: Sodium Chloride 0.9% 1,000 ML IV SCH (20:15)
[2017-07-20 20:23] VITALS: BMI 32.3
[2017-07-20] MEDS ORDERED: HumaLOG 300 UNITS/3 ML VIAL SC PRN ×2 (22:49)
[2017-07-20] MEDS ORDERED: Dextrose 5% in Water 1,000 ML IV PRN (22:49)
[2017-07-20] MEDS ORDERED: Dextrose 50% Abboject 50 ML SYRINGE SLOW IVP PRN (22:49)
[2017-07-21] MEDS ORDERED: Dextrose 5% in Water 1,000 ML IV PRN (12:14)
[2017-07-21] MEDS ORDERED: Senokot 8.6 MG TAB PO PRN (12:14)
[2017-07-21] MEDS ORDERED: traMADol HCl 50 MG TAB PO PRN (12:14)
[2017-07-21] MEDS ORDERED: HumaLOG 300 UNITS/3 ML VIAL SC PRN ×2 (12:14)
[2017-07-21] MEDS ORDERED: Dextrose 50% Abboject 50 ML SYRINGE SLOW IVP PRN (12:14)
[2017-07-21] MEDS ORDERED: Guaifenesin DM 100-10/5 ML UDCUP PO PRN (12:14)
[2017-07-21] MEDS ORDERED: Acetaminophen 325 MG TAB PO PRN (12:14)
[2017-07-21] MEDS: Furosemide 40 MG/4 ML VIAL SLOW IVP SCH (13:15)
[2017-07-21] MEDS: Levofloxacin 750 mg/D5W 500 MG in Premix Bag 1 BAG IVPB SCH (13:19)
--- NOTE | 2017-07-21 16:42 | HP ---
REASON FOR ADMISSION: Mild chronic obstructive pulmonary disease exacerbation and mild CHF exacerbat ion. HISTORY OF PRESENTING ILLNESS: The patient apparently was coughing and had drooling around 3:00 p.m. when home health nurse came to check on him yesterday. He had left face drooling and was not able t o talk. He has had cough with expectoration of yellow thick sputum. He also could not lift his left upper extremity. The home health nurse summoned EMS. EMS took 45 minutes to reach ER here. On arr ival in the emergency room, patient was completely back to his baseline, talking with no weakness or drooling. He still had persistent cough. Currently, he has no complaints of chest pain, palpitation s or PND. PAST MEDICAL AND SURGICAL HISTORY: History of hypertension, diabetes mellitus type 2, dyslipidemia, benign prostatic hypertrophy, pacemaker, cataract surgery, coronary artery disease. CURRENT MEDICATIONS: Patient is on metformin 850 mg twice daily, simvastatin 80 mg p.o. at bedtime, Flomax 0.4 mg p.o. daily, tolterodine 4 mg p.o. daily, Ultram 50 mg twice daily p.r.n., gabapentin 30 0 mg p.o. at bedtime, Proscar 5 mg p.o. daily, Colace 50 mg daily, vitamin D3 400 units p.o. daily, a nd Coreg 6.25 mg p.o. twice daily. ALLERGIES: PENICILLIN. PERSONAL HISTORY: Does not abuse alcohol or drugs. Quit smoking more than 10 years ago, has smoked for nearly 20 years with 2 packs per day then. His daughter stays with the patient and he walks with a rolling walker. FAMILY HISTORY: Mother at the age of 82 years. Father also lived more or less the same [facility] as of his mom, but he cannot recall the exact cause of his . REVIEW OF SYSTEMS: The following complete review of systems was negative, unless otherwise mentioned in the HPI or below: Constitutional: Weight loss or gain, ability to conduct usual activities. Skin: Rash, itching. Eyes: Double vision, pain. ENT/Mouth: Nose bleeding, neck stiffness, pain, tenderness. Cardiovascular: Palpitations, dyspnea on exertion, orthopnea. Respiratory: Shortness of breath, wheezing, cough, hemoptysis, fever or night sweats. Gastrointestinal: Poor appetite, abdominal pain, heartburn, nausea, vomiting, constipation, or diarr hea. Genitourinary: Urgency, frequency, dysuria, nocturia. Musculoskeletal: Pain, swelling. Neurologic/Psychiatric: Anxiety, depression. Allergy/Immunologic: Skin rash, bleeding tendency. PHYSICAL EXAMINATION: GENERAL: The patient is an 87-year-old male who is currently not in any acute distress. VITAL SIGNS: Blood pressure 160/76, pulse 60 per minute, respiratory rate 14 per minute, temperature 98.8 degrees Fahrenheit, saturating 96% on room air. NECK: Supple, no elevated JVD. HEENT: Extraocular muscles intact. Pupils reacting to light. Oral cavity; mucous membranes are tomasa st. No exudates or congestion. CARDIOVASCULAR: S1, S2 heard. Regular rhythm. RESPIRATORY: Air entry 1+ bilateral. Scattered rhonchi plus bilateral, wheezes plus bilaterally. ABDOMEN: Soft, bowel sounds heard. No tenderness, rigidity or guarding. EXTREMITIES: No peripheral edema or calf tenderness. VASCULAR SYSTEM: Peripheral pulses 1+ bilateral. No ischemic ulcerations or gangrene. CENTRAL NERVOUS SYSTEM: No gross focal deficits seen. Patient is awake and responds well to verbal communication. PSYCHIATRIC: No obvious hallucinations or delusions. IMAGING DATA AND LABORATORY DATA: Chest x-ray done shows no acute cardiopulmonary abnormalities. CT brain done shows no acute intracranial abnormalities. There is old dense calcification seen in the right basal ganglia. Troponin I 0.03. BNP is 406, BUN 22, and creatinine 1.5. Electrolytes are sta ble. Liver enzymes within normal limits. Albumin is 4.0. PT/INR within normal limits. White count of 5, hemoglobin and hematocrit 13 and 41, platelet count 175, MCV is 94 with 71% neutrophils. EKG done shows paced rhythm at 60 beats per minute. There are nonspecific ST-T wave changes. CLINICAL IMPRESSION AND PLAN: The patient will be under observation on telemetry for mild chronic ob structive pulmonary disease exacerbation, mild congestive heart failure exacerbation. There is no cl inical evidence of stroke, although he came with left-sided weakness, drooling per family. All of th is got resolved in the ER itself by the time he arrived. He will be on aspirin, Coreg, empiric Levaq uin, DuoNebs, Lasix, just 3 doses of IV, finasteride, metformin, Flomax and trospium as before. We w ill also continue his Zocor and Glucophage as before. No further workup for stroke will be done unle ss patient becomes symptomatic again. The plan is to gently diurese him with bronchodilators and see if he perks up by tomorrow. He is at his baseline functional status, walking with a rolling walker. He will be discharged home. We will continue to closely monitor him on telemetry. Please note pat moshe has a followup appointment to see Dr. Frost on 08/12/2016 for an episode of nonsustained ventricu lar tachycardia which he had during his hospitalization here in May.
[2017-07-21] MEDS: metFORMIN 850 MG TAB PO SCH (17:49)
[2017-07-21] MEDS ORDERED: Famotidine 20 MG TAB PO SCH (21:00)
[2017-07-21] MEDS ORDERED: Gabapentin 300 MG CAP PO SCH (21:00)
[2017-07-21] MEDS ORDERED: Simvastatin 40 MG TAB PO SCH (21:00)
[2017-07-21] MEDS: Carvedilol 6.25 MG TAB PO SCH (21:04)
[2017-07-21] MEDS: TROSPIUM 20 MG TABLET PO SCH (21:05)
[2017-07-22 05:28] LABS: #Basophils 0.1 thou/uL (0.0-0.2); #Eosinphils 0.2 thou/uL (0.0-0.7); #Lymphocytes 1.3 thou/uL (1.20-3.40); #Monocytes 0.5 thou/uL (0.11-0.59); #Neutrophils 4.1 thou/uL (1.40-6.50); %Basophils 0.8 % (0.0-1.0); %Eosinophils 3.5 % (0.0-10.0); %Monocytes 7.9 % (0.0-10.0); %Neutrophils 66.9 % (42.0-75.0); Hemoglobin 12.9 g/dL (14.0-18.0); Mean Corpuscular HGB CONC 33.1 g/dL (32.0-36.0); Mean Corpuscular Hemoglobin 30.7 pg (27.0-31.0); Mean Corpuscular Volume 92.9 fl (80.0-94.0); Mean Platelet Volume 7.3 fL (7.4-10.4); Platelet Count 186 thou/uL (130-400); RBC Distribution Width 12.6 % (11.5-14.5); Red Blood Cell (RBC) Count 4.21 mill/uL (4.70-6.10); White Blood Cell (WBC) Count 6.2 thou/uL (4.8-10.8)
[2017-07-22 05:46] LABS: Anion Gap 11 mmol/L (10-20); BUN (Urea Nitrogen) 20 mg/dL (8.4-25.7); Calc. Creatinine Clearance 51 mL/min (70-130); Calcium 9.3 mg/dL (7.8-10.44); Carbon Dioxide 32 mmol/L (23-31); Chloride 101 mmol/L (98-107); Estimated GFR-MDRD 40; Glucose 108 mg/dL (83-110); Potassium 3.6 mmol/L (3.5-5.1); Sodium 140 mmol/L (136-145)
[2017-07-22] MEDS: Furosemide 40 MG/4 ML VIAL SLOW IVP SCH (06:44)
[2017-07-22] MEDS ORDERED: Docusate Sodium 100 MG/10 ML UDCUP PO SCH (09:00)
[2017-07-22] MEDS ORDERED: Lisinopril 2.5 MG TAB PO SCH (09:00)
[2017-07-22] MEDS ORDERED: Finasteride 5 MG TAB PO SCH (09:00)
[2017-07-22] MEDS ORDERED: Enoxaparin Sodium 40 MG/0.4 ML SYRINGE SC SCH (09:00)
[2017-07-22] MEDS ORDERED: Tamsulosin HCl 0.4 MG CAP PO SCH (09:00)
[2017-07-22] MEDS: TROSPIUM 20 MG TABLET PO SCH (09:07)
[2017-07-22] MEDS: metFORMIN 850 MG TAB PO SCH (09:08)
[2017-07-22] MEDS: Carvedilol 6.25 MG TAB PO SCH (09:09)
--- NOTE | 2017-07-22 10:57 | PDOC.PN ---
- Subjective Encounter Start Date: 07/22/17 Encounter Start Time: 09:00 Subjective: no sob/palp/chest pain, feels better -: is amb in room, ate his breakfast -: no weakness in any extremities - Objective Resuscitation Status: Resuscitation Status FULL:Full Resuscitation MAR Reviewed: Yes Vital Signs & Weight: Vital Signs (12 hours) Temp Pulse Resp BP BP Pulse Ox 07/22/17 09:09 155/85 H 07/22/17 09:07 65 155/85 H 07/22/17 08:19 91 L 07/22/17 08:17 65 16 07/22/17 08:00 97.5 F L 65 18 155/85 H 155/85 H 91 L 07/22/17 07:00 97.5 F L 65 18 155/85 H 91 L 07/22/17 04:06 97.7 F 66 16 152/85 H 95 07/22/17 00:19 67 16 Weight Weight 249 lb I&O: 07/21/17 07/22/17 07/23/17 06:59 06:59 06:59 Intake Total 1035 180 Output Total 0 100 Balance 1035 80 Result Diagrams: 07/22/17 05:07 07/22/17 05:07 Additional Labs: Accuchecks 07/22/17 07/21/17 07/21/17 05:27 21:24 17:16 POC Glucose 102 127 H 98 07/21/17 10:49 POC Glucose 182 H Phys Exam - Physical Examination HEENT: PERRLA, moist MMs Neck: no JVD, supple Respiratory: no wheezing, no rales Cardiovascular: RRR, no significant murmur Gastrointestinal: soft, non-tender, positive bowel sounds Musculoskeletal: no edema, pulses present Neurological: non-focal, moves all 4 limbs Psychiatric: A&O x 3 Dx/Plan (1) COPD (chronic obstructive pulmonary disease) Status: Acute Qualifiers: COPD type: COPD with acute exacerbation Qualified Code(s): J44.1 - Chronic obstructive pulmonary disease with (acute) exacerbation Comment: resolving, mild (2) CHF (congestive heart failure) Code(s): I50.9 - HEART FAILURE, UNSPECIFIED Status: Chronic Qualifiers: Congestive heart failure type: diastolic Congestive heart failure chronicity: acute on chronic Qualified Code(s): I50.33 - Acute on chronic diastolic (congestive) heart failure (3) CKD (chronic kidney disease) stage 3, GFR 30-59 ml/min Code(s): N18.3 - CHRONIC KIDNEY DISEASE, STAGE 3 (MODERATE) Status: Chronic (4) Diabetes mellitus Code(s): E11.9 - TYPE 2 DIABETES MELLITUS WITHOUT COMPLICATIONS Status: Chronic Qualifiers: Diabetes mellitus type: type 2 Diabetes mellitus complication status: with kidney complications Diabetes mellitus complication detail: with chronic kidney disease Diabetes mellitus [facility] insulin use: without ocean transportation intermediary use Chronic kidney disease stage: stage 3 (moderate) Qualified Code(s): E11.22 - Type 2 diabetes mellitus with diabetic chronic kidney disease; N18.3 - Chronic kidney disease, stage 3 (moderate); N18.3 - Chronic kidney disease, stage 3 (moderate) (5) Hypertension Code(s): I10 - ESSENTIAL (PRIMARY) HYPERTENSION Status: Chronic Qualifiers: Hypertension type: essential hypertension Qualified Code(s): I10 - Essential (primary) hypertension (6) Dyslipidemia Code(s): E78.5 - HYPERLIPIDEMIA, UNSPECIFIED Status: Chronic - Plan hemostable -: add lisinopril to coreg, lasix small dose -: alb inhaler, oral levaq for 4 days -: dc pt home -: to f/u with PCP in 1 week. * .
[2017-07-22 12:09] VITALS: BP 132/79; TEMP 98
[2017-07-22] MEDS: Levofloxacin 750 mg/D5W 500 MG in Premix Bag 1 BAG IVPB SCH (14:27)
--- NOTE | 2017-07-22 22:59 | DIS ---
DATE OF ADMISSION: 07/20/2017 DATE OF DISCHARGE: 07/22/2017 DISCHARGE DISPOSITION: To home. PRIMARY DISCHARGE DIAGNOSES: Mild chronic obstructive pulmonary disease exacerbation, resolved; mild congestive heart failure exacerbation, resolved. SECONDARY DISCHARGE DIAGNOSES: Diabetes mellitus type 2, chronic kidney disease stage 3, hypertensio n, dyslipidemia. PROCEDURES DONE DURING HOSPITALIZATION: The patient has had chest x-ray done showed no acute infiltr ate. CT brain done showed no acute intracranial abnormality. There is an old dense calcification se en in the right basal ganglia, which is stable from prior exam. Blood cultures x2. Preliminary resu lts are negative. H and H 12 and 39. White count of 6 with 66% neutrophils. Discharge BUN and crea tinine is 20 and 1.6. BNP 406. Troponin I was indeterminate at 0.03, CK-MB 3.0. DISCHARGE MEDICATIONS: Albuterol inhaler q.6 hourly p.r.n., aspirin 81 mg p.o. daily, Coreg 6.25 mg p.o. twice daily, vitamin D3 of 400 units p.o. daily, Colace 50 mg p.o. daily, Proscar 5 mg p.o. anson y, Lasix 20 mg p.o. daily, gabapentin 300 mg p.o. at bedtime, Levaquin 250 mg p.o. daily for another 4 days, lisinopril 2.5 mg p.o. daily, metformin 850 mg p.o. twice daily, K-Dur 20 mEq on alternate da ys while taking Lasix, Zocor 80 mg p.o. at bedtime, Flomax 0.4 mg p.o. daily, tolterodine 4 mg p.o. d aily, Ultram 50 mg twice daily p.r.n. ALLERGIES: PENICILLIN. DISCHARGE PLAN: Patient is to follow up with primary care physician in 1 week. BRIEF COURSE DURING HOSPITALIZATION: The patient initially was brought to the ER after he had episod es of coughing and drooling and was unable to lift his left upper extremity per home health nurse who saw him at home around 3:00 p.m. yesterday. He was essentially brought to the ER for stroke alert. On arrival in the ER, patient essentially got back to his baseline with no weakness or drooling. He still had persistent cough. The patient was essentially placed under observation for mild COPD and mild CHF exacerbation with diastolic dysfunction. He was gently diuresed during his stay here. He w as also empirically placed on Levaquin for his pulmonary disease flareup. The patient received 3 dos es of 40 mg IV Lasix. This morning, he is ambulating and eating well. He is hemodynamically stable and appears to be at his baseline. He will be shortly discharged home. He needs to follow up with h is primary care physician in 1 week. Please note patient was placed on Lasix 20 mg daily along with alternate day potassium. The patient has known history of chronic kidney disease, stage 3 and this n eeds to be closely monitored with him being on a very small dose of lisinopril at 2.5 mg daily. Adilson small see a face to face documentation on [email or web address] for the day of discharge.
== END 2017-07-22 14:25 | disposition home or self-care (01) ==
LOC: ERS 16:11 → 2SE 19:38
PROVIDERS: ADMIT Internal Medicine; ATTEND Internal Medicine
DX: J44.1 Chronic obstructive pulmonary disease with (acute) exacerbation (principal); I13.0 Hypertensive heart and chronic kidney disease with heart failure and stage 1 through stage 4 chronic kidney disease, or unspecified chronic kidney disease; E11.22 Type 2 diabetes mellitus with diabetic chronic kidney disease; N18.3 Chronic kidney disease, stage 3 (moderate); I50.33 Acute on chronic diastolic (congestive) heart failure; E78.5 Hyperlipidemia, unspecified; Z88.0 Allergy status to penicillin; Z79.899 Other long term (current) drug therapy; Z87.891 Personal history of nicotine dependence
CPT/HCPCS: 36415; 36416; 70450; 71045; 80048; 80053; 82550; 82553; 83880; 84484; 85025; 85610; 85730; 86850; 86900; 86901; 87040; 93005; 94640; 96361; 96372; 96374; 96375; 96376; G0378; J1650; J1940; J1956; J7620

== ENCOUNTER 2017-07-23 17:36 | Inpatient (IN) | payer MEDICARE ==
[2017-07-23 18:11] LABS: #Eosinphils 0.1 thou/uL (0.0-0.7); #Monocytes 0.9 thou/uL (0.11-0.59); #Neutrophils 10.5 thou/uL (1.40-6.50); %Basophils 0.1 % (0.0-1.0); %Lymphocytes 8.3 % (21.0-51.0); %Monocytes 6.9 % (0.0-10.0); %Neutrophils 83.7 % (42.0-75.0); Hemoglobin 14.2 g/dL (14.0-18.0); Mean Corpuscular HGB CONC 32.9 g/dL (32.0-36.0); Mean Corpuscular Hemoglobin 30.8 pg (27.0-31.0); Mean Corpuscular Volume 93.7 fl (80.0-94.0); Mean Platelet Volume 7.7 fL (7.4-10.4); Platelet Count 198 thou/uL (130-400); RBC Distribution Width 12.8 % (11.5-14.5); White Blood Cell (WBC) Count 12.6 thou/uL (4.8-10.8)
[2017-07-23 18:19] LABS: Prothrombin Time 13.5 SEC (12.0-14.7)
[2017-07-23 18:30] LABS: ALT (SGPT) 11 U/L (8-55); AST (SGOT) 22 U/L (5-34); Albumin 4.4 g/dL (3.4-4.8); Alkaline Phosphatase 65 U/L (40-150); Anion Gap 16 mmol/L (10-20); BUN (Urea Nitrogen) 41 mg/dL (8.4-25.7); Bilirubin, Total 0.9 mg/dL (0.2-1.2); Calc. Creatinine Clearance 0 mL/min (70-130); Calcium 9.7 mg/dL (7.8-10.44); Carbon Dioxide 26 mmol/L (23-31); Chloride 99 mmol/L (98-107); Estimated GFR-MDRD 16; Globulin 2.9 g/dL (2.4-3.5); Glucose 153 mg/dL (83-110); Potassium 4.9 mmol/L (3.5-5.1); Protein, Total 7.3 g/dL (5.8-8.1); Sodium 136 mmol/L (136-145)
[2017-07-23 18:37] LABS: CKMB 2.3 ng/mL (0-6.6); Troponin I 0.071 ng/mL (< 0.028)
--- NOTE | 2017-07-23 18:42 | CT ---
CT HEAD NONCONTRAST: Comparison: 07-20-17 Clinical history: Emergency exam. Neuro deficit. FINDINGS: There is re-demonstration of hyperdense calcification of the right basal ganglia. Mild chronic microv ascular ischemic disease is present. There is no acute intracranial hemorrhage, mass effect, or midli ne shift. IMPRESSION: 1. No acute intracranial hemorrhage or mass effect. 2. Mild chronic microvascular ischemic disease. 3. Re-demonstration of dense calcification of the right basal ganglia. POS: C
[2017-07-23 19:50] LABS: Bilirubin Negative (Negative); Blood, Urine Negative (Negative); Clarity CLEAR (Clear); Glucose, Urine (Dipstick) Negative (Negative); Leukocyte Negative (Negative); Nitrite Negative (Negative); Protein, Urine (Dipstick) Negative (Neg-Trace); Specific Gravity, Urine 1.016 (1.002-1.036); Urobilinogen 0.2 mg/dL (0.2-1.0); pH, Urine 5.5 (5.0-9.0)
[2017-07-23] MEDS ORDERED: Aspirin 300 MG Suppository ONE (20:59)
[2017-07-23] MEDS ORDERED: Ondansetron HCl/PF 4 MG/2 ML Vial IVP PRN (21:31)
[2017-07-23] MEDS ORDERED: Acetaminophen 325 MG TAB PO PRN (21:31)
[2017-07-23] MEDS ORDERED: Ondansetron ODT 4 MG TAB SL PRN (21:31)
[2017-07-23 21:39] LABS: Troponin I 0.067 ng/mL (< 0.028)
[2017-07-24] MEDS ORDERED: HYDROcodone/Acetaminophen 5/325 mg Tablet PO PRN (00:45)
[2017-07-24] MEDS ORDERED: hydrALAZINE 20 MG/ML VIAL SLOW IVP PRN (00:45)
[2017-07-24 01:03] LABS: Troponin I 0.089 ng/mL (< 0.028)
[2017-07-24] MEDS: Sodium Chloride 0.9% 1,000 ML IV SCH ×3 (01:46→22:16)
--- NOTE | 2017-07-24 01:48 | HP ---
DATE OF ADMISSION: 07/23/2017 CHIEF COMPLAINT: Altered mental status. HISTORY OF PRESENT ILLNESS: This is an 87-year-old white male. He is being recently admitted to the hospital for TIA workup and was discharged home following negative CT of the brain and with no neuro logic deficits. The patient was at home and was visited by home health nurse who notices the patient was very confused and the patient was also seen by his daughter. [place] the patient was completely co nfused and unable to answer any questions and was very lethargic, so patient was sent to the ER for f urther evaluation. In the ER, the patient had mildly elevated troponin and also with markedly elevat ed creatinine compared to the previous visit. Patient was admitted to the floor for further evaluati on. Initially, it was thought the patient could have had another TIA as a CT of the head was negativ e and was showing a persistent opacity of the basal ganglia, but he did not have any acute neurologic deficits noted on the exam. Unable to get any history at this time, the daughter is also not available at the bedside. Most of t he history is obtained from the ER physician. PAST MEDICAL HISTORY: 1. Hypertension. 2. Type 2 diabetes mellitus. 3. Dyslipidemia. 4. Benign prostate hypertrophy. 5. History of pacemaker placement. PAST SURGICAL HISTORY: 1. Cataract surgery. 2. Pacemaker placement. 3. History of coronary artery disease. FAMILY HISTORY: Mother at the age of 82. Father also lived up to 80. Otherwise, no history of any cancers or premature deaths. SOCIAL HISTORY: Patient lives on his own. He has no history of smoking. No history of alcohol. No history of illicit drug use. REVIEW OF SYSTEMS: Could not be obtained as the patient is completely disoriented, unable to answer any questions. He was having some blank stares occasionally, but on sometimes, he does answer questi ons, which is naughty a few days ago according to the nurses. ALLERGIES: PENICILLIN. HOME MEDICATIONS: 1. Simvastatin 80 mg daily. 2. Metformin 850 mg twice daily. 3. Flomax 0.4 mg p.o. daily. 4. Tolterodine 4 mg p.o. daily. 5. Ultram 50 mg twice daily. 6. Gabapentin 300 mg p.o. at bedtime. 7. Proscar 5 mg daily. 8. Colace 50 mg daily. 9. Vitamin D3 of 400 units daily. 10. Coreg 6.25 mg twice daily. PHYSICAL EXAMINATION: VITAL SIGNS: Blood pressures are 143/63, heart rate is 63, respirations 20, saturation 96%. GENERAL: The patient is moderately built and moderately nourished, does not appear to be in acute di stress at this time, is completely disoriented. HEENT: Atraumatic, normocephalic. PERRLA. Extraocular movements are intact. Oral mucosa is pink a nd moist. CARDIOVASCULAR: S1, S2 normal. No murmurs, rubs, or gallops. LUNGS: Bilateral air entry was equal. No wheezing, no crackles. ABDOMEN: Soft, nontender, no guarding, no rebound tenderness. Bowel sounds are normal. MUSCULOSKELETAL: No calf tenderness. No pedal edema, no tenderness, no joint swelling. SKIN: No cyanosis, no edema, no rash, no pallor. NEUROLOGIC: Cranial nerve examination II through XII intact. No focal deficits were noted. LABORATORY DATA: Sodium is 136, potassium 4.9, chloride is 99, BUN is 41, creatinine is 3.53. Blood sugar is 153. Troponin 0.07, next one 0.06. ASSESSMENT AND PLAN: 1. Acute metabolic encephalopathy. 2. Acute kidney injury. 3. Non-ST elevation myocardial infarction. 4. History of chronic obstructive pulmonary disease. 5. Type 2 diabetes mellitus. 6. Hypertension. 7. History of coronary artery disease. PLAN: 1. Plan is to closely monitor this patient and do fall precautions at this time. The patient is hig h risk, is not able to follow commands and we will do a swallow study in the morning. 2. The patient has elevated creatinine. We will consult Nephrology and will continue the patient on IV fluids at this time. The patient's most recent creatinine was 1.5, so there is a huge change in his creatinine. No known use of any NSAIDs at this time and there is no evidence of any recent contr ast use. 3. We will avoid nephrotoxic medications at this time. 4. The patient has elevated troponins. He denies having any chest pain, but again the patient is ve ry unresponsive and unable to answer any questions clearly. So at this time, we will consult Cardiol jony to look for any evidence of cardiac ischemia. The patient is on beta-mary ann. We will continue with this and start the patient on aspirin 81 mg daily. The patient had a recent echocardiogram 2 da ys ago and we will follow up with the Cardiology recommendations. 5. The patient has history of chronic obstructive pulmonary disease. No evidence of any exacerbatio n was noted. 6. The patient history of type 2 diabetes mellitus, well-controlled. We will continue to monitor. 7. History of hypertension, well controlled. We will continue to monitor at this time. 8. Deep vein thrombosis prophylaxis. Lovenox. Dictating Physician, Lucio Francisco, has spent 70 minutes on this patient.
[2017-07-24 05:13] LABS: #Eosinphils 0.2 thou/uL (0.0-0.7)
[2017-07-24 05:21] LABS: #Lymphocytes 1.6 thou/uL (1.20-3.40); #Monocytes 0.9 thou/uL (0.11-0.59); #Neutrophils 8.3 thou/uL (1.40-6.50); %Basophils 0.3 % (0.0-1.0); %Eosinophils 1.9 % (0.0-10.0); %Lymphocytes 14.8 % (21.0-51.0); Mean Corpuscular HGB CONC 32.7 g/dL (32.0-36.0); Mean Corpuscular Hemoglobin 30.9 pg (27.0-31.0); Mean Corpuscular Volume 94.4 fl (80.0-94.0); Mean Platelet Volume 7.6 fL (7.4-10.4); Platelet Count 180 thou/uL (130-400); RBC Distribution Width 12.7 % (11.5-14.5); White Blood Cell (WBC) Count 11.1 thou/uL (4.8-10.8)
[2017-07-24 05:35] LABS: Anion Gap 14 mmol/L (10-20); BUN (Urea Nitrogen) 47 mg/dL (8.4-25.7); Calc. Creatinine Clearance 24 mL/min (70-130); Calcium 9.1 mg/dL (7.8-10.44); Carbon Dioxide 26 mmol/L (23-31); Chloride 101 mmol/L (98-107); Estimated GFR-MDRD 17; Glucose 106 mg/dL (83-110); Sodium 137 mmol/L (136-145)
[2017-07-24] MEDS ORDERED: traMADol HCl 50 MG TAB PO PRN (07:54)
[2017-07-24] MEDS ORDERED: Tolterodine Tartrate LA 4 MG CAP PO SCH (09:00)
[2017-07-24] MEDS ORDERED: Enoxaparin Sodium 40 MG/0.4 ML SYRINGE SC SCH (09:00)
[2017-07-24] MEDS ORDERED: Famotidine/PF 20 mg/2ml Vial SLOW IVP SCH ×2 (09:00)
--- NOTE | 2017-07-24 09:18 | CON ---
DATE OF CONSULTATION: 07/24/2017 REASON FOR CONSULTATION: Elevated troponin. REFERRING PROVIDER: Lucio Francisco M.D. HISTORY OF PRESENT ILLNESS: Mr. 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 He underwent coronary angiography i n 2013. He has not been seen or evaluated in the office over the last 3 years. He recently presented with transient ischemic attack versus stroke and was subsequently readmitted. During my visit, he is unsure why he is in the hospital. He does not recognize me. There is some co nfusion. According to the chart, it appears Mr. Dickey was admitted for altered mental status. PAST MEDICAL HISTORY: Diabetes mellitus, hypertension, hyperlipidemia, BPH, status post pacemaker, C AD as above. SOCIAL HISTORY: No current tobacco or alcohol use. HOME MEDICATIONS: Gabapentin, finasteride, carvedilol, tramadol, metformin, tamsulosin, Zocor, docus ate, vitamin D3, acetaminophen, levofloxacin, potassium, lisinopril, Lasix, and aspirin. REVIEW OF SYSTEMS: Unobtainable. PHYSICAL EXAMINATION: GENERAL: Patient is a pleasant male who is in no acute distress. The patient appears his stated age . The patient is currently confused. VITAL SIGNS: Blood pressure 130/66, pulse 66, temperature 97.9. NEUROLOGIC: The patient is alert and oriented times 3 with no focal neurologic deficits. HEENT: Sclerae without icterus. Mouth has moist mucous membranes with normal pallor. NECK: No JVD. Carotid upstroke brisk. No bruits bilaterally. LUNGS: Clear to auscultation with unlabored respirations. BACK: No scoliosis or kyphosis. CARDIAC: Regular rate and rhythm with normal S1 and S2. No S3 or S4 noted. No significant rubs, mu rmurs, thrills, or gallops noted throughout the precordium. PMI is not displaced. There is no christophe ternal heave. ABDOMEN: Soft, nontender, nondistended. No peritoneal signs present. No hepatosplenomegaly. No ab normal striae. EXTREMITIES: 2+ femoral and 2+ dorsalis pedis pulses. No cyanosis, clubbing, or edema. SKIN: No gross abnormalities. PERTINENT LABORATORY DATA: Hemoglobin 13, white blood cell count 11.1, creatinine 3.36, peak troponi n 0.089. IMPRESSION: 1. Altered mental status. 2. Elevated troponin. 3. Acute on chronic kidney disease. 4. Coronary artery disease. RECOMMENDATIONS: From a cardiovascular standpoint, I have no recommendations outside of medical ther apy. This certainly is not the reason for his confusion. His elevated troponin, most likely related to decrease in his GFR and decrease in his creatinine clearance. He is currently asymptomatic, deny ing chest pain, pressure, or other associated symptoms. His last echo in the office suggested LVEF t o 50%-55%. Would recommend a repeat echo. Otherwise, I have no further recommendations.
--- NOTE | 2017-07-24 11:10 | PDOC.PN ---
- Subjective Encounter Start Date: 07/24/17 Encounter Start Time: 08:20 -: old records requested/rev pt is confused, weak, no chest pain Patient seen and examined. No overnight events - Objective Resuscitation Status: Resuscitation Status FULL:Full Resuscitation MAR Reviewed: Yes Vital Signs & Weight: Vital Signs (12 hours) Temp Pulse Resp BP BP Pulse Ox 07/24/17 08:17 97.9 F 66 18 138/66 95 07/24/17 08:00 97.9 F 66 18 07/24/17 04:24 97.3 F L 66 20 136/63 97 07/24/17 04:00 97.3 F L 66 20 136/63 97 07/24/17 02:43 95 07/24/17 00:05 97.3 F L 63 20 143/63 H 96 07/24/17 00:00 97.3 F L 63 20 143/63 H 96 Weight Weight 252 lb I&O: 07/23/17 07/24/17 07/25/17 06:59 06:59 06:59 Intake Total 317 Balance 317 Result Diagrams: 07/24/17 04:49 07/24/17 04:49 Additional Labs: Accuchecks 07/24/17 06:10 POC Glucose 103 Radiology Reviewed by me: Yes EKG Reviewed by me: Yes Phys Exam - Physical Examination Constitutional: NAD HEENT: PERRLA, moist MMs, sclera anicteric Neck: no JVD, supple Respiratory: no wheezing, no rales, no rhonchi Cardiovascular: RRR, no significant murmur, no rub Gastrointestinal: soft, non-tender, no distention, positive bowel sounds obesity+ Musculoskeletal: no edema, pulses present Neurological: non-focal, normal sensation, moves all 4 limbs Psychiatric: normal affect, A&O x 3 Skin: no rash, normal turgor Dx/Plan (1) Acute metabolic encephalopathy Code(s): G93.41 - METABOLIC ENCEPHALOPATHY Status: Acute (2) Acute worsening of stage 3 chronic kidney disease Code(s): N18.3 - CHRONIC KIDNEY DISEASE, STAGE 3 (MODERATE) Status: Acute (3) Elevated troponin Code(s): R74.8 - ABNORMAL LEVELS OF OTHER SERUM ENZYMES Status: Acute (4) Anemia, normocytic normochromic Code(s): D64.9 - ANEMIA, UNSPECIFIED Status: Chronic (5) BPH (benign prostatic hyperplasia) Code(s): N40.0 - BENIGN PROSTATIC HYPERPLASIA WITHOUT LOWER URINRY TRACT SYMP Status: Chronic (6) COPD (chronic obstructive pulmonary disease) Status: Chronic Qualifiers: COPD type: COPD with acute exacerbation Qualified Code(s): J44.1 - Chronic obstructive pulmonary disease with (acute) exacerbation Comment: resolving, mild (7) Chronic diastolic (congestive) heart failure Code(s): I50.32 - CHRONIC DIASTOLIC (CONGESTIVE) HEART FAILURE Status: Chronic (8) Diabetes type 2, controlled Code(s): E11.9 - TYPE 2 DIABETES MELLITUS WITHOUT COMPLICATIONS Status: Chronic (9) Dyslipidemia Code(s): E78.5 - HYPERLIPIDEMIA, UNSPECIFIED Status: Chronic (10) Hypertension Code(s): I10 - ESSENTIAL (PRIMARY) HYPERTENSION Status: Chronic Qualifiers: Hypertension type: essential hypertension Qualified Code(s): I10 - Essential (primary) hypertension (11) Obesity (BMI 30.0-34.9) Code(s): E66.9 - OBESITY, UNSPECIFIED Status: Chronic - Plan cont current plan of care, continue antibiotics, PT/OT, public health social worker, speech therapy, respiratory therapy * change to inpt status * nephrology consulted * cardiology consult noted * neurology consulted. * renal US * MRI not possible due to AICD/PM * medication reviewed as below * symptomatic treatment Review of Systems - Review of Systems Constitutional: negative: fever, chills, sweats, weakness, malaise, other ENT: negative: Ear Pain, Ear Discharge, Nose Pain, Nose Discharge, Nose Congestion, Mouth Pain, Mouth Swelling, Throat Pain, Throat Swelling, Other Respiratory: negative: Cough, Dry, Shortness of Breath, Hemoptysis, SOB with Excertion, Pleuritic Pain, Sputum, Wheezing Cardiovascular: negative: chest pain, palpitations, orthopnea, paroxysmal nocturnal dyspnea, edema, light headedness, other Gastrointestinal: negative: Nausea, Vomiting, Abdominal Pain, Diarrhea, Constipation, Melena, Hematochezia, Other Genitourinary: negative: Dysuria, Frequency, Incontinence, Hematuria, Retention , Other Musculoskeletal: negative: Neck Pain, Shoulder Pain, Arm Pain, Back Pain, Hand Pain, Leg Pain, Foot Pain, Other Skin: negative: Rash, Lesions, Tyrell, Bruising, Other Neurological: Confusion. negative: Weakness, Numbness, Incoordination, Change in Speech, Seizures, Other Other: not reliable due to altered mental status and pt is confused - Medications/Allergies Allergies/Adverse Reactions: Allergies Allergy/AdvReac Type Severity Reaction Status Date / Time Penicillins Allergy Severe Verified 07/23/17 23:22 Medications: Current Medications Hydrocodone Bitart/Acetaminophen ([place] 5/325) 1 tab PO Q4H PRN PRN Reason: Moderate Pain (4-6) Aspirin (Ecotrin) 81 mg PO DAILY [facility] Atorvastatin Calcium (Lipitor) 40 mg PO HS [facility] Carvedilol (Coreg) 3.125 mg PO BID [facility] Docusate Sodium (Colace) 100 mg PO BID [facility] Enoxaparin Sodium (Lovenox) 30 mg SC 0900 [facility] Famotidine (Pepcid) 20 mg SLOW IVP DAILY [facility] Finasteride (Proscar) 5 mg PO DAILY [facility] Gabapentin (Neurontin) 300 mg PO HS [facility] Hydralazine HCl (Apresoline) 10 mg SLOW IVP Q4H PRN PRN Reason: BP > 220/110 Sodium Chloride (Normal Saline 0.9%) 1,000 mls @ 75 mls/hr IV .[id number] [facility] Last Admin: 07/24/17 01:46 Dose: 1,000 mls Levofloxacin 250 mg/ Device 50 mls @ 100 mls/hr IVPB Q24HR [facility] Sodium Chloride (Flush - Normal Saline) 10 ml IVF Q12HR [facility] Sodium Chloride (Flush - Normal Saline) 10 ml IVF PRN PRN PRN Reason: Saline Flush Tamsulosin HCl (Flomax) 0.4 mg PO DAILY [facility] Tramadol HCl (Ultram) 50 mg PO BIDPRN PRN PRN Reason: Pain Trospium (Trospium) 20 mg PO BID [facility]
[2017-07-24 11:31] VITALS: BMI 32.3
[2017-07-24] MEDS: Famotidine 40 MG/4 ML VIAL SLOW IVP SCH ×2 (11:39→12:00)
[2017-07-24] MEDS: Aspirin 81 mg Enteric Coated Tablet PO SCH (11:39)
[2017-07-24] MEDS: TROSPIUM 20 MG TABLET PO SCH ×2 (11:39→20:49)
[2017-07-24] MEDS: Tamsulosin HCl 0.4 MG CAP PO SCH (11:39)
[2017-07-24] MEDS: Docusate 100 MG CAP PO SCH ×2 (11:39→20:47)
[2017-07-24] MEDS: Carvedilol 3.125 MG TAB PO SCH ×2 (11:39→20:49)
[2017-07-24] MEDS: Finasteride 5 MG TAB PO SCH (11:39)
--- NOTE | 2017-07-24 11:40 | ULT ---
RENAL ULTRASOUND: HISTORY: Acute kidney injury. TECHNIQUE: Multiplanar, scruggs scale, and color Doppler images were obtained in a renal ultrasound. FINDINGS: There are hypoechoic to anechoic cysts in both kidneys. The largest is seen in the left measuring 4. 9 cm in greatest dimension. The kidneys demonstrate normal cortical echogenicity without hydronephro sis or calculi. The kidneys measure 11.9 and 9.5 cm in length on the right and left, respectively. Limited visualization of the urinary bladder is unremarkable. IMPRESSION: Bilateral renal cysts. POS: IAN
[2017-07-24] MEDS: Enoxaparin Sodium 30 MG/0.3 ML SYRINGE SC SCH (12:00)
--- NOTE | 2017-07-24 19:31 | CON ---
DATE OF CONSULTATION: 07/24/2017 CONSULTING PHYSICIAN: Hospitalist Service. IMPRESSION: 1. Metabolic encephalopathy. 2. Dementia. 3. Diabetes. 4. Hypertension. PLAN: Address metabolic issues. HISTORY OF PRESENT ILLNESS: Mr. Dickey is an 87-year-old gentleman who lives at home with assistance and with his daughter. He reportedly became very lethargic and poorly responsive. He was brought in to the hospital and treated as a stroke, had a CT scan of the brain done which was unremarkable. He has had notable renal insufficiency with a BUN of 41, creatinine 3.5. His white blood cell count was slightly elevated. Urine was clear. He has not had any fever since admission. The patient is with out any particular complaints. PAST MEDICAL HISTORY: Coronary artery disease, diabetes, hypertension, hyperlipidemia. PAST SURGICAL HISTORY: Pacemaker implantation. FAMILY HISTORY: Not obtainable. REVIEW OF SYSTEMS: Not obtainable. MEDICATIONS: List was reviewed. He is already on Zocor, aspirin. PHYSICAL EXAMINATION: GENERAL: He is a well-nourished elderly man, lying in bed in a diaper with all the covers kicked off of him. HEENT: Pupils equal. Conjunctivae clear. Oropharynx clear. Cranium normocephalic, atraumatic. NECK: Supple. EXTREMITIES: No cyanosis or edema. NEUROLOGIC: He was alert and cooperative. He would follow simple commands, but his processing speed was quite slow. His speech was fluent and clear. He was only oriented to self. His cranial nerve exam did not show any asymmetry, had good glost kiln placer strength bilaterally. Good antigravity strength in luly th legs. Sensation was grossly symmetric. No abnormal movements were seen. SUMMARY: This is an elderly gentleman with a probable dementia superimpose renal insufficiency causi ng some increased confusion. He seems to be better and he has gotten some IV fluids. I do not see a ny acute neurologic issues.
[2017-07-24] MEDS: Atorvastatin Calcium 40 MG TAB PO SCH (20:49)
[2017-07-24] MEDS: Gabapentin 300 MG CAP PO SCH (20:49)
--- NOTE | 2017-07-25 01:14 | CON ---
DATE OF CONSULTATION: 07/24/2017 REASON FOR CONSULTATION: elevated creatinine. HISTORY OF PRESENT ILLNESS: This is a very pleasant 87-year-old gentleman, who presented to the hospital with significant coronary artery disease and possible TIA. His baseline creatinine was in the 1.5 . The patient at this time denies no headache, numbness, tingling or weakness. Denies any nausea, vomiting or chest pain. PAST MEDICAL HISTORY: Significant for diabetes mellitus, hypertension, BPH, pacemaker, coronary artery disease. SOCIAL HISTORY: No alcohol or drug use. FAMILY HISTORY: Negative for ESRD. REVIEW OF SYSTEMS: A 15-point review of systems was performed and was negative except for positives noted above. GENERAL: Weakness- HEAD: Headache- NECK: No swelling or lumps. NOSE: No epistaxis or discharge. EYES: No diplopia or pain. RESPIRATORY: Dyspnea- CARDIOVASCULAR: Chest pain- GASTROINTESTINAL: Nausea- /PLASTICS ENGINEERING TEACHER: Hematuria- MUSCULOSKELETAL: No joint pain. NEUROPSYCHIATIC SYSTEMS: No suicidal ideation. No ideation. SKIN: Denies any rash or ulcer. CONSTITUTIONAL: No fever or chills. HOME MEDICATIONS: List reviewed. HOSPITAL MEDICATIONS: List reviewed. ALLERGIES: Reviewed. PHYSICAL EXAMINATION: GENERAL: The patient is awake and alert. VITAL SIGNS: Afebrile, pulse . GENERAL APPEARANCE AND MENTAL STATUS: Fair. HEAD/NECK: Normocephalic. Atraumatic. EYES: EOMI. No deformity. EARS: Clear. No ulcers. NOSE: Intact. No lesions. MOUTH: Clear. No discharge. THROAT: Clear. No exudate. LUNGS: Clear. No crackles. CARDIAC: S1, S2. No rub. ABDOMEN: Benign. BS+. GENITALIA/RECTUM: Morel absent. BACK/EXTREMITIES: Edema 0+ Ulcer- NEUROLOGICAL: Alert and motor intact. SKIN: Rash- Bruise- LYMPHATICS: Edema- Ulcer- LABORATORY DATA: Sodium 137, ASSESSMENT AND RECOMMENDATIONS: 1. Acute kidney injury with chronic kidney disease, most likely because of progressive diabetic nephropathy and hypertensive nephropathy. No indication for dialysis. Agree with gentle hydration. 2. Anemia, stable. 3. Hypertension. Titrate home blood pressure medications. No indication for dialysis at this time. We would recommend increasing the nifedipine to 60 mg daily. MTDD
[2017-07-25 08:11] LABS: #Eosinphils 0.2 thou/uL (0.0-0.7); #Lymphocytes 0.9 thou/uL (1.20-3.40); #Monocytes 0.6 thou/uL (0.11-0.59); #Neutrophils 6.5 thou/uL (1.40-6.50); %Basophils 0.5 % (0.0-1.0); %Eosinophils 2.5 % (0.0-10.0); %Lymphocytes 11.2 % (21.0-51.0); %Neutrophils 78.8 % (42.0-75.0); Hemoglobin 12.5 g/dL (14.0-18.0); Mean Corpuscular HGB CONC 33.4 g/dL (32.0-36.0); Mean Corpuscular Volume 92.8 fl (80.0-94.0); Platelet Count 139 thou/uL (130-400); RBC Distribution Width 12.7 % (11.5-14.5); Red Blood Cell (RBC) Count 4.04 mill/uL (4.70-6.10); White Blood Cell (WBC) Count 8.2 thou/uL (4.8-10.8)
[2017-07-25 08:32] LABS: ALT (SGPT) 9 U/L (8-55); AST (SGOT) 24 U/L (5-34); Albumin 3.8 g/dL (3.4-4.8); Alkaline Phosphatase 56 U/L (40-150); Anion Gap 9 mmol/L (10-20); BUN (Urea Nitrogen) 36 mg/dL (8.4-25.7); Bilirubin, Total 0.8 mg/dL (0.2-1.2); Calc. Creatinine Clearance 40 mL/min (70-130); Calcium 9.1 mg/dL (7.8-10.44); Carbon Dioxide 32 mmol/L (23-31); Chloride 102 mmol/L (98-107); Estimated GFR-MDRD 31; Globulin 2.6 g/dL (2.4-3.5); Glucose 127 mg/dL (83-110); Phosphorus 2.8 mg/dL (2.3-4.7); Potassium 3.9 mmol/L (3.5-5.1); Protein, Total 6.4 g/dL (5.8-8.1); Sodium 139 mmol/L (136-145)
[2017-07-25 08:55] LABS: Syphilis Antibody Nonreactive (Nonreactive); Syphilis Antibody Index 0.11 S/CO (<1.00 Non-Reactive)
[2017-07-25 09:10] LABS: Folate (Folic Acid) 12.2 ng/mL (7.0-31.4)
[2017-07-25] MEDS: TROSPIUM 20 MG TABLET PO SCH ×2 (09:33→21:14)
[2017-07-25] MEDS: Famotidine 20 MG TAB PO SCH (09:34)
[2017-07-25] MEDS: Tamsulosin HCl 0.4 MG CAP PO SCH (09:34)
[2017-07-25] MEDS: Docusate 100 MG CAP PO SCH ×2 (09:35→21:14)
[2017-07-25] MEDS: Aspirin 81 mg Enteric Coated Tablet PO SCH (09:35)
[2017-07-25] MEDS: Carvedilol 3.125 MG TAB PO SCH ×2 (09:35→21:14)
[2017-07-25] MEDS: Enoxaparin Sodium 30 MG/0.3 ML SYRINGE SC SCH (09:35)
[2017-07-25] MEDS: Finasteride 5 MG TAB PO SCH (09:35)
[2017-07-25] MEDS: Sodium Chloride 0.9% 1,000 ML IV SCH ×2 (09:41→13:45)
[2017-07-25] MEDS ORDERED: Cyanocobalamin 1000 MCG/ML VIAL IM SCH (10:15)
--- NOTE | 2017-07-25 10:20 | PRG ---
DATE OF SERVICE: 07/25/2017 SUBJECTIVE: This is an 87-year-old gentleman being seen for acute kidney injury. The patient denies any nausea, vomiting or chest pain. PHYSICAL EXAMINATION: GENERAL: Patient is awake, alert. VITAL SIGNS: Afebrile, pulse 60, breathing at 16, blood pressure 174/90. OBJECTIVE: See above. Awake, alert, in no acute distress. GENERAL APPEARANCE AND MENTAL STATUS: Fair. HEAD/NECK: Normocephalic. Atraumatic. EYES: EOMI. No deformity. EARS: Clear. No ulcers. NOSE: Intact. No lesions. MOUTH: Clear. No discharge. THROAT: Clear. No exudate. LUNGS: Clear. No crackles. CARDIAC: S1, S2. No rub. ABDOMEN: Benign. BS+. GENITALIA/RECTUM: Morel absent. BACK/EXTREMITIES: Edema 0+ Ulcer- NEUROLOGICAL: Alert and motor intact. SKIN: Rash- Bruise- LYMPHATICS: Edema- Ulcer- LABORATORY: Hemoglobin 12.5, creatinine 2.06. ASSESSMENT AND RECOMMENDATIONS: 1. Acute kidney injury, improved. 2. Hypertension, would recommend adding amlodipine 2.5 mg daily if the blood pressure does not impro ve with decreasing IV fluids. 3. Anemia, stable. 4. Medications based on glomerular filtration rate are appropriate. No indication for dialysis at t his time.
--- NOTE | 2017-07-25 10:20 | PDOC.PN ---
- Subjective Encounter Start Date: 07/25/17 Encounter Start Time: 07:00 this morning pt is resting, follows simple command, slightly confused, weak - Objective MAR Reviewed: Yes Vital Signs & Weight: Vital Signs (12 hours) Temp Pulse Resp BP Pulse Ox 07/25/17 08:00 97.6 F 60 20 182/90 H 95 07/25/17 03:27 97.8 F 61 18 174/90 H 95 07/24/17 23:16 97.3 F L 59 L 15 180/77 H 94 L Weight Admit Weight 247 lb 11.2 oz Weight 252 lb I&O: 07/24/17 07/25/17 07/26/17 06:59 06:59 06:59 Intake Total 490 Balance 490 Result Diagrams: 07/25/17 08:03 07/25/17 08:03 Additional Labs: Accuchecks 07/25/17 07/24/17 04:48 21:35 POC Glucose 140 H 183 H EKG Reviewed by me: Yes (nsr) Phys Exam - Physical Examination Constitutional: NAD HEENT: PERRLA, moist MMs, sclera anicteric Neck: no JVD, supple Respiratory: no wheezing, no rales, no rhonchi Cardiovascular: RRR, no significant murmur, no rub Gastrointestinal: soft, non-tender, no distention, positive bowel sounds Musculoskeletal: no edema, pulses present Neurological: non-focal, moves all 4 limbs Lymphatic: no nodes Psychiatric: normal affect Skin: no rash, normal turgor Dx/Plan (1) Acute metabolic encephalopathy Code(s): G93.41 - METABOLIC ENCEPHALOPATHY Status: Acute (2) Acute worsening of stage 3 chronic kidney disease Code(s): N18.3 - CHRONIC KIDNEY DISEASE, STAGE 3 (MODERATE) Status: Acute (3) Elevated troponin Code(s): R74.8 - ABNORMAL LEVELS OF OTHER SERUM ENZYMES Status: Acute (4) Anemia, normocytic normochromic Code(s): D64.9 - ANEMIA, UNSPECIFIED Status: Chronic (5) BPH (benign prostatic hyperplasia) Code(s): N40.0 - BENIGN PROSTATIC HYPERPLASIA WITHOUT LOWER URINRY TRACT SYMP Status: Chronic (6) COPD (chronic obstructive pulmonary disease) Status: Chronic Qualifiers: COPD type: COPD with acute exacerbation Qualified Code(s): J44.1 - Chronic obstructive pulmonary disease with (acute) exacerbation Comment: resolving, mild (7) Chronic diastolic (congestive) heart failure Code(s): I50.32 - CHRONIC DIASTOLIC (CONGESTIVE) HEART FAILURE Status: Chronic (8) Diabetes type 2, controlled Code(s): E11.9 - TYPE 2 DIABETES MELLITUS WITHOUT COMPLICATIONS Status: Chronic (9) Dyslipidemia Code(s): E78.5 - HYPERLIPIDEMIA, UNSPECIFIED Status: Chronic (10) Hypertension Code(s): I10 - ESSENTIAL (PRIMARY) HYPERTENSION Status: Chronic Qualifiers: Hypertension type: essential hypertension Qualified Code(s): I10 - Essential (primary) hypertension (11) Obesity (BMI 30.0-34.9) Code(s): E66.9 - OBESITY, UNSPECIFIED Status: Chronic (12) Dementia Code(s): F03.90 - UNSPECIFIED DEMENTIA WITHOUT BEHAVIORAL DISTURBANCE Status: Chronic (13) Vitamin B12 deficiency Code(s): E53.8 - DEFICIENCY OF OTHER SPECIFIED B GROUP VITAMINS Status: Acute - Plan cont current plan of care, PT/OT * continue gentle IVF * add vitamin B12 1000 IM daily * continue PT/OT * address discharge planning * neuro, cardio and nephrology recommendation noted. * medication reviewed as below * symptomatic treatment Review of Systems - Review of Systems Other: not reliable due to his level of cognitive status - Medications/Allergies Allergies/Adverse Reactions: Allergies Allergy/AdvReac Type Severity Reaction Status Date / Time Penicillins Allergy Severe Verified 07/23/17 23:22 Medications: Current Medications Hydrocodone Bitart/Acetaminophen ([place] 5/325) 1 tab PO Q4H PRN PRN Reason: Moderate Pain (4-6) Aspirin (Ecotrin) 81 mg PO DAILY [facility] Last Admin: 07/25/17 09:35 Dose: 81 mg Atorvastatin Calcium (Lipitor) 40 mg PO HS [facility] Last Admin: 07/24/17 20:49 Dose: 40 mg Carvedilol (Coreg) 3.125 mg PO BID [facility] Last Admin: 07/25/17 09:35 Dose: 3.125 mg Cyanocobalamin (Vitamin B-12) 1,000 mcg IM DAILY [facility] Cyanocobalamin (Vitamin B-12) 1,000 mcg IM NOW [facility] Stop: 07/25/17 12:15 Last Admin: 07/25/17 10:17 Dose: 1,000 mcg Docusate Sodium (Colace) 100 mg PO BID [facility] Last Admin: 07/25/17 09:35 Dose: 100 mg Enoxaparin Sodium (Lovenox) 30 mg SC 0900 [facility] Last Admin: 07/25/17 09:35 Dose: 30 mg Famotidine (Pepcid) 20 mg PO DAILY [facility] Last Admin: 07/25/17 09:34 Dose: 20 mg Finasteride (Proscar) 5 mg PO DAILY [facility] Last Admin: 07/25/17 09:35 Dose: 5 mg Gabapentin (Neurontin) 300 mg PO HS [facility] Last Admin: 07/24/17 20:49 Dose: 300 mg Hydralazine HCl (Apresoline) 10 mg SLOW IVP Q4H PRN PRN Reason: BP > 220/110 Sodium Chloride (Normal Saline 0.9%) 1,000 mls @ 75 mls/hr IV .[id number] [facility] Last Admin: 07/25/17 09:41 Dose: 1,000 mls Levofloxacin 250 mg/ Device 50 mls @ 100 mls/hr IVPB Q24HR [facility] Last Admin: 07/24/17 12:00 Dose: 50 mls Sodium Chloride (Flush - Normal Saline) 10 ml IVF Q12HR [facility] Last Admin: 07/25/17 09:38 Dose: Not Given Sodium Chloride (Flush - Normal Saline) 10 ml IVF PRN PRN PRN Reason: Saline Flush Tamsulosin HCl (Flomax) 0.4 mg PO DAILY [facility] Last Admin: 07/25/17 09:34 Dose: 0.4 mg Tramadol HCl (Ultram) 50 mg PO BIDPRN PRN PRN Reason: Pain Trospium (Trospium) 20 mg PO BID [facility] Last Admin: 07/25/17 09:33 Dose: 20 mg
--- NOTE | 2017-07-25 15:47 | PQF ---
DATE: 07-25-17 ATTN: DR. ALBERTA FAUSTIN Please exercise your independent, professional judgment in responding to the clarification form. Clinical indicators are provided on the bottom of this form for your review Please check appropriate box(s): [x ] Demand Ischemia [ ] NSTEMI [ ] OK (type 2 ) [ ] Other diagnosis [ ] Unable to determine In addition, please specify: Present on Admission (POA): [ x ] Yes [ ] No [ ] Unable to determine CLINICAL INDICATORS - SIGNS / SYMPTOMS / LABS H&P: NON-ST ELEVATION OK CONSULT DR. WALKER 07-24-17: HIS ELEVATED TROPONIN, MOST LIKELY RELATED TO DECREASE IN HIS GFR AND DECREASE IN HIS CREATININE CLEARANCE. PN DR. FAUSTIN 07-25-17: ACUTE ELEVATED TROPONINS TROPONIN: 07-23-17: 0.071 0.067 07-24-17: 0.089 RISKS: H&P: HX OF HTN, DYSLIPIDEMIA, PACEMAKER, DM 2, SMOKER TREATMENTS: CARDIOLOGY CONSULT SERIES OF LABS ON TELEMETRY MONITORING (This form is maintained as a part of the permanent medical record) 2014 [employer]. All Rights Reserved KIANNA [email or web address] Office: [phone] [facility] HOSPITALKitty
[2017-07-25] MEDS: Gabapentin 300 MG CAP PO SCH (21:14)
[2017-07-25] MEDS: Ziprasidone 20 MG CAP PO SCH (21:15)
[2017-07-25] MEDS: Atorvastatin Calcium 40 MG TAB PO SCH (21:15)
[2017-07-26 08:06] LABS: Albumin 3.7 g/dL (3.4-4.8); Anion Gap 10 mmol/L (10-20); BUN (Urea Nitrogen) 26 mg/dL (8.4-25.7); BUN/Creatinine Ratio 16.35; Calc. Creatinine Clearance 52 mL/min (70-130); Calcium 9.2 mg/dL (7.8-10.44); Carbon Dioxide 29 mmol/L (23-31); Chloride 104 mmol/L (98-107); Estimated GFR-MDRD 41; Glucose 121 mg/dL (83-110); Phosphorus 2.5 mg/dL (2.3-4.7); Potassium 4.3 mmol/L (3.5-5.1); Sodium 139 mmol/L (136-145)
[2017-07-26] MEDS: Aspirin 81 mg Enteric Coated Tablet PO SCH (09:26)
[2017-07-26] MEDS: Carvedilol 3.125 MG TAB PO SCH ×2 (09:28→20:43)
[2017-07-26] MEDS: Docusate 100 MG CAP PO SCH ×2 (09:29→20:44)
[2017-07-26] MEDS: Enoxaparin Sodium 30 MG/0.3 ML SYRINGE SC SCH (09:29)
[2017-07-26] MEDS: Cyanocobalamin 1000 MCG/ML VIAL IM SCH (09:29)
[2017-07-26] MEDS: Tamsulosin HCl 0.4 MG CAP PO SCH (09:30)
[2017-07-26] MEDS: Famotidine 20 MG TAB PO SCH (09:30)
[2017-07-26] MEDS: TROSPIUM 20 MG TABLET PO SCH ×2 (09:30→20:43)
[2017-07-26] MEDS: Finasteride 5 MG TAB PO SCH (09:30)
--- NOTE | 2017-07-26 10:06 | PDOC.PN ---
- Subjective Encounter Start Date: 07/26/17 Encounter Start Time: 07:10 Patient seen and examined. No new complaints. No overnight events main issue is his weakness, renal function now baseline - Objective MAR Reviewed: Yes Vital Signs & Weight: Vital Signs (12 hours) Temp Pulse Resp BP Pulse Ox 07/26/17 07:48 97.2 F L 60 20 130/72 92 L 07/26/17 03:39 97.9 F 62 18 158/84 H 93 L 07/25/17 23:48 97.1 F L 61 16 173/81 H 95 Weight Admit Weight 247 lb 11.2 oz Weight 252 lb I&O: 07/25/17 07/26/17 07/27/17 06:59 06:59 06:59 Intake Total 490 1100 Output Total 300 Balance 490 800 Result Diagrams: 07/25/17 08:03 07/26/17 07:41 Additional Labs: Accuchecks 07/26/17 07/25/17 07/25/17 05:26 23:48 17:31 POC Glucose 117 H 129 H 139 H 07/25/17 07/25/17 15:34 11:15 POC Glucose 168 H 161 H EKG Reviewed by me: Yes (nsr) Phys Exam - Physical Examination Constitutional: NAD HEENT: PERRLA, moist MMs, sclera anicteric Neck: no JVD, supple Respiratory: no wheezing, no rales, no rhonchi Cardiovascular: RRR, no significant murmur, no rub Gastrointestinal: soft, non-tender, no distention, positive bowel sounds Musculoskeletal: no edema, pulses present Neurological: non-focal, normal sensation Lymphatic: no nodes Psychiatric: normal affect Skin: no rash, normal turgor Dx/Plan (1) Acute metabolic encephalopathy Code(s): G93.41 - METABOLIC ENCEPHALOPATHY Status: Acute (2) Acute worsening of stage 3 chronic kidney disease Code(s): N18.3 - CHRONIC KIDNEY DISEASE, STAGE 3 (MODERATE) Status: Acute (3) Elevated troponin Code(s): R74.8 - ABNORMAL LEVELS OF OTHER SERUM ENZYMES Status: Acute (4) Anemia, normocytic normochromic Code(s): D64.9 - ANEMIA, UNSPECIFIED Status: Chronic (5) BPH (benign prostatic hyperplasia) Code(s): N40.0 - BENIGN PROSTATIC HYPERPLASIA WITHOUT LOWER URINRY TRACT SYMP Status: Chronic (6) COPD (chronic obstructive pulmonary disease) Status: Chronic Qualifiers: COPD type: COPD with acute exacerbation Qualified Code(s): J44.1 - Chronic obstructive pulmonary disease with (acute) exacerbation Comment: resolving, mild (7) Chronic diastolic (congestive) heart failure Code(s): I50.32 - CHRONIC DIASTOLIC (CONGESTIVE) HEART FAILURE Status: Chronic (8) Diabetes type 2, controlled Code(s): E11.9 - TYPE 2 DIABETES MELLITUS WITHOUT COMPLICATIONS Status: Chronic (9) Dyslipidemia Code(s): E78.5 - HYPERLIPIDEMIA, UNSPECIFIED Status: Chronic (10) Hypertension Code(s): I10 - ESSENTIAL (PRIMARY) HYPERTENSION Status: Chronic Qualifiers: Hypertension type: essential hypertension Qualified Code(s): I10 - Essential (primary) hypertension (11) Obesity (BMI 30.0-34.9) Code(s): E66.9 - OBESITY, UNSPECIFIED Status: Chronic (12) Dementia Code(s): F03.90 - UNSPECIFIED DEMENTIA WITHOUT BEHAVIORAL DISTURBANCE Status: Chronic (13) Vitamin B12 deficiency Code(s): E53.8 - DEFICIENCY OF OTHER SPECIFIED B GROUP VITAMINS Status: Acute - Plan cont current plan of care, plan discussed w/ family, continue antibiotics, PT/OT , executive secretary social welfare * continue levaquin today * continue vitamin B12 * will need rehab placement per family request * pillowcase maker for discharge planning * medication reviewed as below * symptomatic treatment * DC IVF. Review of Systems - Review of Systems ENT: negative: Ear Pain, Ear Discharge, Nose Pain, Nose Discharge, Nose Congestion, Mouth Pain, Mouth Swelling, Throat Pain, Throat Swelling, Other Respiratory: negative: Cough, Dry, Shortness of Breath, Hemoptysis, SOB with Excertion, Pleuritic Pain, Sputum, Wheezing Cardiovascular: negative: chest pain, palpitations, orthopnea, paroxysmal nocturnal dyspnea, edema, light headedness, other Gastrointestinal: negative: Nausea, Vomiting, Abdominal Pain, Diarrhea, Constipation, Melena, Hematochezia, Other Genitourinary: negative: Dysuria, Frequency, Incontinence, Hematuria, Retention , Other Musculoskeletal: negative: Neck Pain, Shoulder Pain, Arm Pain, Back Pain, Hand Pain, Leg Pain, Foot Pain, Other Other: not reliable due to dementia - Medications/Allergies Allergies/Adverse Reactions: Allergies Allergy/AdvReac Type Severity Reaction Status Date / Time Penicillins Allergy Severe Verified 07/23/17 23:22 Medications: Current Medications Hydrocodone Bitart/Acetaminophen ([place] 5/325) 1 tab PO Q4H PRN PRN Reason: Moderate Pain (4-6) Aspirin (Ecotrin) 81 mg PO DAILY [facility] Last Admin: 07/26/17 09:26 Dose: 81 mg Atorvastatin Calcium (Lipitor) 40 mg PO HS [facility] Last Admin: 07/25/17 21:15 Dose: 40 mg Carvedilol (Coreg) 3.125 mg PO BID [facility] Last Admin: 07/26/17 09:28 Dose: 3.125 mg Cyanocobalamin (Vitamin B-12) 1,000 mcg IM DAILY [facility] Last Admin: 07/26/17 09:29 Dose: 1,000 mcg Docusate Sodium (Colace) 100 mg PO BID [facility] Last Admin: 07/26/17 09:29 Dose: 100 mg Enoxaparin Sodium (Lovenox) 30 mg SC 0900 [facility] Last Admin: 07/26/17 09:29 Dose: 30 mg Famotidine (Pepcid) 20 mg PO DAILY [facility] Last Admin: 07/26/17 09:30 Dose: 20 mg Finasteride (Proscar) 5 mg PO DAILY [facility] Last Admin: 07/26/17 09:30 Dose: 5 mg Gabapentin (Neurontin) 300 mg PO HS [facility] Last Admin: 07/25/17 21:14 Dose: 300 mg Hydralazine HCl (Apresoline) 10 mg SLOW IVP Q4H PRN PRN Reason: BP > 220/110 Levofloxacin 250 mg/ Device 50 mls @ 100 mls/hr IVPB Q24HR [facility] Last Admin: 07/25/17 13:45 Dose: 50 mls Sodium Chloride (Flush - Normal Saline) 10 ml IVF Q12HR [facility] Last Admin: 07/26/17 09:30 Dose: Not Given Sodium Chloride (Flush - Normal Saline) 10 ml IVF PRN PRN PRN Reason: Saline Flush Tamsulosin HCl (Flomax) 0.4 mg PO DAILY [facility] Last Admin: 07/26/17 09:30 Dose: 0.4 mg Tramadol HCl (Ultram) 50 mg PO BIDPRN PRN PRN Reason: Pain Trospium (Trospium) 20 mg PO BID [facility] Last Admin: 07/26/17 09:30 Dose: 20 mg Ziprasidone (Geodon) 20 mg PO HS [facility] Last Admin: 07/25/17 21:15 Dose: 20 mg
--- NOTE | 2017-07-26 17:41 | PRG ---
DATE OF SERVICE: 07/26/2017 SUBJECTIVE: An 87-year-old gentleman being seen for acute kidney injury. The patient denies any wero sea, vomiting or chest pain. PHYSICAL EXAMINATION: GENERAL: Patient is awake, alert. VITAL SIGNS: Afebrile, pulse 50, breathing at 16, blood pressure 117/78. HEAD/NECK: Normocephalic. Atraumatic. EYES: EOMI. No deformity. EARS: Clear. No ulcers. NOSE: Intact. No lesions. MOUTH: Clear. No discharge. THROAT: Clear. No exudate. LUNGS: Clear. No crackles. CARDIAC: S1, S2. No rub. ABDOMEN: Benign. BS+. GENITALIA/RECTUM: Morel absent. BACK/EXTREMITIES: Edema 0+ Ulcer- NEUROLOGICAL: Alert and motor intact. SKIN: Rash- Bruise- LYMPHATICS: Edema- Ulcer- LABORATORY DATA: Show hemoglobin 12.5, creatinine 1.5. ASSESSMENT AND PLAN: 1. Acute kidney injury, improved. 2. Hypertension, stable. 3. Anemia, stable. 4. Medications based on glomerular filtration rate are appropriate. Creatinine is at baseline. I w ill sign off. The patient will follow up to see me in 1 week.
[2017-07-26] MEDS: Ziprasidone 20 MG CAP PO SCH (20:43)
[2017-07-26] MEDS: Gabapentin 300 MG CAP PO SCH (20:43)
[2017-07-26] MEDS: Atorvastatin Calcium 40 MG TAB PO SCH (20:44)
[2017-07-27] MEDS: Enoxaparin Sodium 30 MG/0.3 ML SYRINGE SC SCH (08:57)
[2017-07-27] MEDS: Tamsulosin HCl 0.4 MG CAP PO SCH ×2 (08:57→14:34)
[2017-07-27] MEDS: Cyanocobalamin 1000 MCG/ML VIAL IM SCH (08:57)
[2017-07-27] MEDS: Docusate 100 MG CAP PO SCH ×2 (08:57→12:03)
[2017-07-27] MEDS: Finasteride 5 MG TAB PO SCH ×2 (08:58→14:34)
[2017-07-27] MEDS: Carvedilol 3.125 MG TAB PO SCH ×2 (08:58→12:03)
[2017-07-27] MEDS: Aspirin 81 mg Enteric Coated Tablet PO SCH ×2 (08:58→14:34)
[2017-07-27] MEDS: Famotidine 20 MG TAB PO SCH ×2 (08:58→14:33)
[2017-07-27] MEDS: TROSPIUM 20 MG TABLET PO SCH ×2 (08:59→12:03)
--- NOTE | 2017-07-27 09:33 | PRG ---
DATE OF SERVICE: 07/27/2017 SUBJECTIVE: An 87-year-old gentleman being seen for acute kidney injury. The patient denies any wero sea, vomiting, or chest pain. OBJECTIVE: GENERAL: The patient is awake, alert. VITAL SIGNS: Afebrile, pulse 60, breathing at 16, blood pressure 123/70. GENERAL APPEARANCE AND MENTAL STATUS: Fair. HEAD/NECK: Normocephalic. Atraumatic. EYES: EOMI. No deformity. EARS: Clear. No ulcers. NOSE: Intact. No lesions. MOUTH: Clear. No discharge. THROAT: Clear. No exudate. LUNGS: Clear. No crackles. CARDIAC: S1, S2. No rub. ABDOMEN: Benign. BS+. GENITALIA/RECTUM: Morel absent. BACK/EXTREMITIES: Edema 0+ Ulcer- NEUROLOGICAL: Alert and motor intact. SKIN: Rash- Bruise- LYMPHATICS: Edema- Ulcer- LABORATORY DATA: Hemoglobin 12.5, creatinine 1.5. PLAN: 1. Acute kidney injury, improved. 2. Hypertension, stable. 3. Anemia, stable. 4. Medications based on glomerular filtration rate are appropriate. I will sign off on this patient. Please reconsult as needed.
--- NOTE | 2017-07-27 09:50 | PDOC.PN ---
- Subjective Encounter Start Date: 07/27/17 Encounter Start Time: 07:20 Patient seen and examined. No new complaints. No overnight events - Objective MAR Reviewed: Yes Vital Signs & Weight: Vital Signs (12 hours) Temp Pulse Resp BP Pulse Ox 07/27/17 07:49 97.5 F L 60 16 142/84 H 99 07/27/17 03:32 95.8 F L 60 12 123/70 87 L 07/26/17 23:54 97.5 F L 63 16 147/77 H 92 L Weight Admit Weight 247 lb 11.2 oz Weight 252 lb I&O: 07/26/17 07/27/17 07/28/17 06:59 06:59 06:59 Intake Total 1100 Output Total 300 Balance 800 Result Diagrams: 07/25/17 08:03 07/26/17 07:41 Additional Labs: Accuchecks 07/27/17 07/26/17 07/26/17 06:12 20:46 17:21 POC Glucose 135 H 161 H 141 H 07/26/17 11:13 POC Glucose 173 H EKG Reviewed by me: Yes Phys Exam - Physical Examination Constitutional: NAD HEENT: PERRLA, moist MMs, sclera anicteric Neck: no JVD, supple Respiratory: no wheezing, no rales, no rhonchi Cardiovascular: RRR, no significant murmur, no rub Gastrointestinal: soft, non-tender, no distention, positive bowel sounds Musculoskeletal: no edema, pulses present Neurological: non-focal, normal sensation, moves all 4 limbs Psychiatric: normal affect Skin: no rash, normal turgor Dx/Plan (1) Acute metabolic encephalopathy Code(s): G93.41 - METABOLIC ENCEPHALOPATHY Status: Acute (2) Acute worsening of stage 3 chronic kidney disease Code(s): N18.3 - CHRONIC KIDNEY DISEASE, STAGE 3 (MODERATE) Status: Acute (3) Elevated troponin Code(s): R74.8 - ABNORMAL LEVELS OF OTHER SERUM ENZYMES Status: Acute (4) Anemia, normocytic normochromic Code(s): D64.9 - ANEMIA, UNSPECIFIED Status: Chronic (5) BPH (benign prostatic hyperplasia) Code(s): N40.0 - BENIGN PROSTATIC HYPERPLASIA WITHOUT LOWER URINRY TRACT SYMP Status: Chronic (6) COPD (chronic obstructive pulmonary disease) Status: Chronic Qualifiers: COPD type: COPD with acute exacerbation Qualified Code(s): J44.1 - Chronic obstructive pulmonary disease with (acute) exacerbation Comment: resolving, mild (7) Chronic diastolic (congestive) heart failure Code(s): I50.32 - CHRONIC DIASTOLIC (CONGESTIVE) HEART FAILURE Status: Chronic (8) Diabetes type 2, controlled Code(s): E11.9 - TYPE 2 DIABETES MELLITUS WITHOUT COMPLICATIONS Status: Chronic (9) Dyslipidemia Code(s): E78.5 - HYPERLIPIDEMIA, UNSPECIFIED Status: Chronic (10) Hypertension Code(s): I10 - ESSENTIAL (PRIMARY) HYPERTENSION Status: Chronic Qualifiers: Hypertension type: essential hypertension Qualified Code(s): I10 - Essential (primary) hypertension (11) Obesity (BMI 30.0-34.9) Code(s): E66.9 - OBESITY, UNSPECIFIED Status: Chronic (12) Dementia Code(s): F03.90 - UNSPECIFIED DEMENTIA WITHOUT BEHAVIORAL DISTURBANCE Status: Chronic (13) Vitamin B12 deficiency Code(s): E53.8 - DEFICIENCY OF OTHER SPECIFIED B GROUP VITAMINS Status: Acute - Plan cont current plan of care, PT/OT, transition social worker * medication reviewed as below * symptomatic treatment * stable for discharge * see discharge jaki. Review of Systems - Review of Systems ENT: negative: Ear Pain, Ear Discharge, Nose Pain, Nose Discharge, Nose Congestion, Mouth Pain, Mouth Swelling, Throat Pain, Throat Swelling, Other Respiratory: negative: Cough, Dry, Shortness of Breath, Hemoptysis, SOB with Excertion, Pleuritic Pain, Sputum, Wheezing Cardiovascular: negative: chest pain, palpitations, orthopnea, paroxysmal nocturnal dyspnea, edema, light headedness, other Gastrointestinal: negative: Nausea, Vomiting, Abdominal Pain, Diarrhea, Constipation, Melena, Hematochezia, Other Genitourinary: negative: Dysuria, Frequency, Incontinence, Hematuria, Retention , Other Musculoskeletal: negative: Neck Pain, Shoulder Pain, Arm Pain, Back Pain, Hand Pain, Leg Pain, Foot Pain, Other Skin: negative: Rash, Lesions, Tyrell, Bruising, Other - Medications/Allergies Allergies/Adverse Reactions: Allergies Allergy/AdvReac Type Severity Reaction Status Date / Time Penicillins Allergy Severe Verified 07/23/17 23:22 Medications: Current Medications Hydrocodone Bitart/Acetaminophen (Sweet 5/325) 1 tab PO Q4H PRN PRN Reason: Moderate Pain (4-6) Aspirin (Ecotrin) 81 mg PO DAILY [facility] Last Admin: 07/27/17 08:58 Dose: 81 mg Atorvastatin Calcium (Lipitor) 40 mg PO HS [facility] Last Admin: 07/26/17 20:44 Dose: 40 mg Carvedilol (Coreg) 3.125 mg PO BID [facility] Last Admin: 07/27/17 08:58 Dose: 3.125 mg Cyanocobalamin (Vitamin B-12) 1,000 mcg IM DAILY [facility] Last Admin: 07/27/17 08:57 Dose: 1,000 mcg Docusate Sodium (Colace) 100 mg PO BID [facility] Last Admin: 07/27/17 08:57 Dose: 100 mg Enoxaparin Sodium (Lovenox) 30 mg SC 0900 [facility] Last Admin: 07/27/17 08:57 Dose: 30 mg Famotidine (Pepcid) 20 mg PO DAILY [facility] Last Admin: 07/27/17 08:58 Dose: 20 mg Finasteride (Proscar) 5 mg PO DAILY [facility] Last Admin: 07/27/17 08:58 Dose: 5 mg Gabapentin (Neurontin) 300 mg PO HS [facility] Last Admin: 07/26/17 20:43 Dose: 300 mg Hydralazine HCl (Apresoline) 10 mg SLOW IVP Q4H PRN PRN Reason: BP > 220/110 Levofloxacin 250 mg/ Device 50 mls @ 100 mls/hr IVPB Q24HR [facility] Last Admin: 07/26/17 13:09 Dose: 50 mls Sodium Chloride (Flush - Normal Saline) 10 ml IVF Q12HR [facility] Last Admin: 07/27/17 08:59 Dose: 10 ml Sodium Chloride (Flush - Normal Saline) 10 ml IVF PRN PRN PRN Reason: Saline Flush Tamsulosin HCl (Flomax) 0.4 mg PO DAILY [facility] Last Admin: 07/27/17 08:57 Dose: 0.4 mg Tramadol HCl (Ultram) 50 mg PO BIDPRN PRN PRN Reason: Pain Trospium (Trospium) 20 mg PO BID [facility] Last Admin: 07/27/17 08:59 Dose: 20 mg Ziprasidone (Geodon) 20 mg PO HS [facility] Last Admin: 07/26/17 20:43 Dose: 20 mg
--- NOTE | 2017-07-27 11:01 | DIS ---
DATE OF ADMISSION: 07/24/2017 DATE OF DISCHARGE: 07/27/2017 PRIMARY CARE PHYSICIAN: Dr. Danny Srinivasan. DISCHARGE DISPOSITION: Rehab versus swing bed in [place]. PRIMARY DISCHARGE DIAGNOSES: 1. Acute metabolic encephalopathy, resolved. 2. Acute on chronic kidney failure, baseline chronic kidney disease stage 3. 3. Elevated troponin due to demand ischemia. 4. Vitamin B12 deficiency. SECONDARY DISCHARGE DIAGNOSES: Normocytic normochromic anemia, benign enlargement of prostate, chron ic diastolic heart failure, chronic obstructive pulmonary disease, dementia, diabetes type 2, dyslipi demia, hypertension, moderate aortic stenosis, obesity with BMI 32. PRIMARY PROCEDURE/OPERATION: None. RADIOLOGICAL INVESTIGATION: CT brain showed cortical atrophy, chronic ischemic white matter changes, calcification in the right basil ganglia. Renal ultrasound, unremarkable. Echocardiography showed moderate aortic stenosis and EF 50%-55%. SIGNIFICANT LABORATORY DATA: WBC 8.2, hemoglobin 12.5, platelets 139. INR 1.0. Sodium 139, potassi um 4.3, chloride 104, BUN 26, creatinine 1.59, glucose 121, calcium 9.2, phosphorus 2.5, albumin 3.7. Urinalysis normal. Syphilis negative. Urine culture negative. DISCHARGE MEDICATIONS: Tylenol 325 mg p.o. q.6 hours p.r.n., Proventil HFA 2 puffs q.6 hours p.r.n., Norvasc 5 mg p.o. daily, aspirin 81 mg p.o. daily, Coreg 3.125 mg p.o. b.i.d., vitamin D3 400 units p.o. daily, vitamin B12 1000 mcg IM every 7 days, Colace 50 mg p.o. daily, Pepcid 20 mg p.o. daily, P roscar 5 mg p.o. daily, gabapentin 300 mg p.o. at bedtime, Zocor 80 mg p.o. at bedtime, Flomax 0.4 mg p.o. daily, Detrol-LA 4 mg p.o. daily, tramadol 50 mg p.o. b.i.d. p.r.n. CONTRAINDICATIONS: None. CODE STATUS: FULL CODE. INPATIENT CONSULTANTS: Dr. Katz was consulted for acute on chronic kidney failure. Dr. Alejandro leal consulted for elevated troponin. Dr. Wm Lopez was consulted for altered mental status. TEST RESULTS PENDING ON DISCHARGE: None. ALLERGIES: PENICILLIN. DISCHARGE PLAN: Post hospital, the patient is discharged to rehab versus swing bed. Subsequently, gee espinosa will follow up with primary care physician. HOSPITAL COURSE: An 87-year-old male who was recently hospitalized and he was discharged and after t hat in the next few days, the patient came back for altered mental status. During this admission, we found that his kidney failure was gotten worse. He has baseline chronic kidney disease stage 3, but creatinine elevated to 3.53. During this admission, we consulted Nephrology. We treated him with c ongenital IV fluid. He was on lisinopril. He was on Lasix and metformin, and that medication was di scontinued. The patient's renal function slowly improved to baseline. Regarding his altered mental status, we consulted Neurology. We are not able to do MRI, because of A ICD or pacemaker, but Neurology agreed that his presentation is consistent with metabolic encephalopa thy. He also has underlying dementia and he had some good days and bad days with intermittent behavi oral problem. This patient's encephalopathy improved with correction of metabolic parameters. We al so found B12 deficiency and that is why while in hospital, we gave him parenteral intramuscularly vit jc B12 and every week he will need for four week and then every month, he will need vitamin B12 inj ection therapy. He was on levofloxacin and that we finished while in hospital, he does not need anymore antibiotic th erapy. His culture is negative. He is afebrile and hemodynamically stable. The patient got weak while in hospital and that is why he needs rehab placement and with the help of residential case manager, we arranged rehab or swing bed. Cardiology was consulted for abnormal troponin and echocardiography showed moderate aortic stenosis. Renal ultrasound was also unremarkable and CT brain was negative for any acute intracranial process. The patient is seen and examined at bedside today and please see my progress note from today for furt her details. As we have discontinued metformin, we are starting Humalog as per sliding scale. Total time spent on discharge day more than 30 minutes to arrange discharge of this patient.
[2017-07-27 16:38] VITALS: BP 151/84; TEMP 97.4
--- NOTE | 2017-08-04 18:03 | EKG ---
Test Reason : Blood Pressure : / mmHG Vent. Rate : 072 BPM Atrial Rate : 072 BPM P-R Int : 204 ms QRS Dur : 104 ms QT Int : 412 ms P-R-T Axes : 000 -62 -17 degrees QTc Int : 451 ms Normal sinus rhythm Left axis deviation Abnormal ECG Confirmed by PIETER GUTIERREZ, RITA ([id number]), television news video editor SCHUYLER JULIAN ([id number]) on 08/04/2017 6:02:05 PM Referred By: Confirmed By:RITA STAPLETON MD
== END 2017-07-27 17:50 | disposition swing bed (61) | DRG 682 ==
LOC: ERS 17:36 → 2NO 21:31 → OBSVTOIN 07-24 11:08 → 2SE 07-24 17:17
PROVIDERS: ADMIT Internal Medicine; ATTEND Internal Medicine
DX: N17.9 Acute kidney failure, unspecified (principal); G93.41 Metabolic encephalopathy; E11.21 Type 2 diabetes mellitus with diabetic nephropathy; I24.8 Other forms of acute ischemic heart disease; I13.0 Hypertensive heart and chronic kidney disease with heart failure and stage 1 through stage 4 chronic kidney disease, or unspecified chronic kidney disease; I50.32 Chronic diastolic (congestive) heart failure; J44.1 Chronic obstructive pulmonary disease with (acute) exacerbation; E11.22 Type 2 diabetes mellitus with diabetic chronic kidney disease; D64.9 Anemia, unspecified; E53.8 Deficiency of other specified B group vitamins; E78.5 Hyperlipidemia, unspecified; I25.10 Atherosclerotic heart disease of native coronary artery without angina pectoris; N40.0 Benign prostatic hyperplasia without lower urinary tract symptoms; Z95.0 Presence of cardiac pacemaker; Z88.0 Allergy status to penicillin; Z79.84 Long term (current) use of oral hypoglycemic drugs; I25.2 Old myocardial infarction; N18.3 Chronic kidney disease, stage 3 (moderate); F03.90 Unspecified dementia, unspecified severity, without behavioral disturbance, psychotic disturbance, mood disturbance, and anxiety; I35.0 Nonrheumatic aortic (valve) stenosis; E66.9 Obesity, unspecified; Z68.32 Body mass index [BMI] 32.0-32.9, adult; Z79.82 Long term (current) use of aspirin; Z86.73 Personal history of transient ischemic attack (TIA), and cerebral infarction without residual deficits; R74.8 Abnormal levels of other serum enzymes; Z87.891 Personal history of nicotine dependence
CPT/HCPCS: 36415; 36416; 51701; 70450; 71045; 76770; 80048; 80053; 80069; 81003; 82550; 82553; 82607; 82746; 83880; 84100; 84443; 84484; 85025; 85610; 85730; 86780; 86850; 86900; 86901; 87040; 87086; 93005; 93306; 94640; 94760; 96361; 96372; 96374; 96375; 96376; A4216; G0378; G8978-GP-CK; G8979-GP-CI; G8987-GO-CM; G8988-GO-CK; G8996-GN-CI; G8996-GN-CK; G8997-GN-CI; G8997-GN-CJ; J1650; J1940; J1956; J2405; J3420; J7620

== ENCOUNTER 2018-10-28 17:41 | Emergency (ER) | payer MEDICARE ==
--- NOTE | 2018-10-28 18:57 | CT ---
CT brain. HISTORY: Fall. Comparison made to previous exam from 07/23/2017. CT images brain demonstrate an asymmetric area of right basal ganglion calcifications. This is stable and unchanged. A tiny posterior to right parafalcine lipomas present. This was seen on the previous exam and is unch anged. No evidence of acute intracranial masses, hemorrhages or strokes seen. No evidence of acute intracranial pathology seen. IMPRESSION: No evidence of acute intracranial abnormality seen.
== END 2018-10-28 19:45 | disposition home or self-care (01) ==
LOC: ERS 17:41
DX: S51.811A Laceration without foreign body of right forearm, initial encounter (principal); Z87.891 Personal history of nicotine dependence; W19.XXXA Unspecified fall, initial encounter
CPT/HCPCS: 70450

== ENCOUNTER 2019-01-05 19:00 | Observation (INO) | payer MEDICARE ==
[2019-01-05 19:42] LABS: #Eosinphils 0.1 thou/uL (0.0-0.7); #Lymphocytes 0.9 thou/uL (1.20-3.40); #Monocytes 0.8 thou/uL (0.11-0.59); #Neutrophils 12.8 thou/uL (1.40-6.50); %Basophils 0.2 % (0.0-1.0); %Eosinophils 0.9 % (0.0-10.0); %Monocytes 5.7 % (0.0-10.0); %Neutrophils 87.2 % (42.0-75.0); Hemoglobin 12.8 g/dL (14.0-18.0); Mean Corpuscular HGB CONC 34.2 g/dL (32.0-36.0); Mean Corpuscular Hemoglobin 30.7 pg (27.0-31.0); Mean Corpuscular Volume 89.7 fL (78.0-98.0); Mean Platelet Volume 7.5 fL (7.4-10.4); Platelet Count 156 thou/uL (130-400); RBC Distribution Width 13.2 % (11.5-14.5); Red Blood Cell (RBC) Count 4.16 mill/uL (4.70-6.10); White Blood Cell (WBC) Count 14.7 thou/uL (4.8-10.8)
--- NOTE | 2019-01-05 20:00 | CT ---
CT BRAIN WITHOUT CONTRAST: INDICATIONS: Altered mental status. COMPARISON: Prior exam dated 10/28/2018. FINDINGS: There is moderate chronic small vessel white matter ischemic change. There is stable calcification w ithin the right basal ganglia. No acute infarct, hemorrhage, or hydrocephalus is present. The skull and extracranial soft tissues are within normal limits. IMPRESSION: No acute intracranial abnormality. POS: BH
[2019-01-05 20:07] LABS: ALT (SGPT) 9 U/L (8-55); AST (SGOT) 21 U/L (5-34); Albumin 4.1 g/dL (3.4-4.8); Alkaline Phosphatase 63 U/L (40-150); Anion Gap 11 mmol/L (10-20); BUN (Urea Nitrogen) 22 mg/dL (8.4-25.7); Bilirubin, Total 1.3 mg/dL (0.2-1.2); Calc. Creatinine Clearance 0 mL/min (70-130); Calcium 9.6 mg/dL (7.8-10.44); Carbon Dioxide 27 mmol/L (23-31); Chloride 103 mmol/L (98-107); Estimated GFR-MDRD 41; Globulin 2.8 g/dL (2.4-3.5); Glucose 106 mg/dL (83-110); Potassium 4.2 mmol/L (3.5-5.1); Protein, Total 6.9 g/dL (5.8-8.1); Sodium 137 mmol/L (136-145)
[2019-01-05 20:24] LABS: Bacteria/HPF None Seen HPF (None Seen); Bilirubin Negative (Negative); Blood, Urine 2+ (Negative); Clarity Clear (Clear); Glucose, Urine (Dipstick) Normal (Negative); Leukocyte Negative Leu/uL (Negative); Nitrite Negative (Negative); Protein, Urine (Dipstick) 20 mg/dL (Neg-Trace); RBC/HPF 0-3 HPF (0-3); Squamous Epithelial None Seen HPF (0-3); Urobilinogen Normal mg/dL (Less than 2); WBC/HPF 0-3 HPF (0-3)
--- NOTE | 2019-01-05 20:47 | RAD ---
CHEST ONE VIEW: INDICATIONS: Altered mental status. Atrial fibrillation. Hiccups. COMPARISON: Prior exam dated 07/12/2017. FINDINGS: There is air space opacity in the region of the lingula and left lower lobe, suspicious for pneumonia . There is mild cardiomegaly. AICD is unchanged. Chronic lung changes are similar appearing. IMPRESSION: Left lower lobe and lingular pneumonia. POS: BH
[2019-01-05] MEDS ORDERED: Metoclopramide HCl 10 MG/2 ML VIAL ONE (21:18)
[2019-01-05] MEDS ORDERED: Senokot S 8.6-50 MG TAB PO PRN (21:31)
[2019-01-05] MEDS ORDERED: Acetaminophen 325 MG TAB PO PRN (21:31)
[2019-01-05] MEDS ORDERED: Bisacodyl 5 MG TAB PO PRN (21:31)
[2019-01-05] MEDS ORDERED: Dextrose 50% Abboject 50 ML SYRINGE SLOW IVP PRN (21:32)
[2019-01-05] MEDS ORDERED: Dextrose 5% in Water 1,000 ML IV PRN (21:32)
[2019-01-05] MEDS ORDERED: HumaLOG 300 UNITS/3 ML VIAL SC PRN (21:32)
[2019-01-05] MEDS ORDERED: Azithromycin 500 MG VIAL ONE (21:50)
[2019-01-05] MEDS ORDERED: Sodium Chloride 0.9% 1,000 ML IV SCH (23:00)
[2019-01-05 23:32] VITALS: BMI 30.7
--- NOTE | 2019-01-06 03:49 | HP ---
This is an H and P for [place]. [facility] G #[id number]. CHIEF COMPLAINT: Some confusion, most of the HPI is through records since the family is not at the bedside and the patient is not able to provide me a history. HISTORY OF PRESENT ILLNESS: The patient is an 88-year-old male with history of atrial fibrillation and CVA, who lives at home, who was brought in by the family with possible some altered mental status and hiccups starting yesterday. Per records, family stated that the patient started having significant amount of hiccups. He does have a history of dementia, however, seemed to be more confused today than normal. The PA who saw the patient in the ER stated that the patient was oriented x2 and that is his baseline per family. The patient currently denies any belly pain, any nausea, vomiting, any diarrhea. He is alert and oriented x1. PAST MEDICAL HISTORY: As of the following; the patient was diagnosed with some dementia, hypertension, diabetes type 2, dyslipidemia, BPH, history of pacemaker. SURGICAL HISTORY: Cataract surgery and a pacemaker. FAMILY HISTORY: No history of heart disease. SOCIAL HISTORY: The patient lives with his daughter. There is no history of smoking, drug use, or alcohol use. He does have home health care and unknown code status. I will put him as full code for now since the patient's daughter whom he lives with, is not currently present. Per documentation, he does not have a designated power of attorney general. MEDICATIONS: He is taking, 1. Norvasc 5 mg daily. 2. Aspirin 81 mg daily. 3. Coreg 3.125 daily. 4. Vitamin D3 400 daily. 5. Pepcid 20 mg daily. 6. Proscar 5 mg daily. 7. Gabapentin 300 mg at bedtime. 8. Zocor 80 mg at bedtime. 9. Flomax 0.4 mg daily. 10. Detrol 4 mg daily. 11. Tramadol 50 mg b.i.d. ALLERGIES: PENICILLIN. REVIEW OF SYSTEMS: Unable to really obtain. PHYSICAL EXAMINATION: VITAL SIGNS: Are as of the following; respirations of 18, 98% on room air, blood pressure 140/80. GENERAL: He is awake and oriented x1. Does not appear in distress. HEENT: Normocephalic, atraumatic. No lymphadenopathy noted. Pupils are equal and reactive to light. CV: S1 and S2 present. No murmurs, rubs, or gallops. He does have a pace pacemaker to his left chest wall area. LUNGS: Decreased breath sounds to bilateral lower lung bases. ABDOMEN: Obese. Bowel sounds are present x2. No pain upon palpation. EXTREMITIES: No edema. Pedal pulses are present x2. NEUROVASCULAR: No focal deficits noted. SKIN: No cuts, lesions, or bruises noted. LABORATORY RESULTS: As of the following; WBCs of 14.7, hemoglobin of 12.8, hematocrit of 37.3, platelets of 156. Chemistry; sodium of 137, potassium of 4.2, BUN of 22, creatinine 1.59. His magnesium was not done. Lactic was 1.1, total bilirubin was 1.3. His urine that was done in the ER with any acute abnormalities. However, when he did have a chest x-ray, his chest x-ray did indicate a left lower lobe lingular pneumonia. Also, he did have a CT brain, which essentially did not show any acute intracranial abnormalities. ASSESSMENT AND PLAN: The patient is a very pleasant 88-year-old male who presents to the hospital with a change in mental status per family and some hiccups. 1. Pneumonia, most likely appears to be community-acquired. I will start him on some Levaquin. We will do DuoNeb p.r.n. and start him on some gentle hydration. He appears a little bit dehydrated. 2. History of atrial fibrillation. We will continue his home medications. He is currently not on any anticoagulation. 3. Diabetes. We will check Accu-Cheks before meals and at bedtime. 4. Hypercholesterolemia. We will continue his anti-lipids. 5. Deep venous thrombosis prophylaxis. We will put the patient on some sequential compression devices and subcu Lovenox. Job ID: [id number]
[2019-01-06 04:25] LABS: #Eosinphils 0.1 thou/uL (0.0-0.7); #Lymphocytes 0.9 thou/uL (1.20-3.40); #Monocytes 0.8 thou/uL (0.11-0.59); #Neutrophils 9.7 thou/uL (1.40-6.50); %Basophils 0.2 % (0.0-1.0); %Eosinophils 1.1 % (0.0-10.0); %Monocytes 6.6 % (0.0-10.0); %Neutrophils 84.1 % (42.0-75.0); Hemoglobin 11.6 g/dL (14.0-18.0); Mean Corpuscular HGB CONC 35.1 g/dL (32.0-36.0); Mean Corpuscular Hemoglobin 31.7 pg (27.0-31.0); Mean Corpuscular Volume 90.3 fL (78.0-98.0); Mean Platelet Volume 7.3 fL (7.4-10.4); Platelet Count 137 thou/uL (130-400); Red Blood Cell (RBC) Count 3.65 mill/uL (4.70-6.10); White Blood Cell (WBC) Count 11.5 thou/uL (4.8-10.8)
[2019-01-06 04:47] LABS: Anion Gap 10 mmol/L (10-20); BUN (Urea Nitrogen) 18 mg/dL (8.4-25.7); Calc. Creatinine Clearance 58 mL/min (70-130); Calcium 8.7 mg/dL (7.8-10.44); Carbon Dioxide 25 mmol/L (23-31); Chloride 106 mmol/L (98-107); Estimated GFR-MDRD 51; Glucose 92 mg/dL (83-110); Sodium 137 mmol/L (136-145)
[2019-01-06] MEDS: Famotidine 20 MG TAB PO SCH (08:00)
[2019-01-06] MEDS: Enoxaparin Sodium 40 MG/0.4 ML SYRINGE SC SCH (08:00)
[2019-01-06] MEDS: Tamsulosin HCl 0.4 MG CAP PO SCH (08:00)
[2019-01-06] MEDS: Finasteride 5 MG TAB PO SCH (08:00)
[2019-01-06] MEDS: Trospium 20 MG TAB PO SCH ×2 (08:00→20:16)
[2019-01-06] MEDS: Aspirin Chewable 81 MG TAB PO SCH (08:01)
[2019-01-06] MEDS: Amlodipine 5 MG TAB PO SCH (08:01)
[2019-01-06] MEDS: Carvedilol 3.125 MG TAB PO SCH ×2 (08:02→20:16)
--- NOTE | 2019-01-06 15:10 | PDOC.PALCO ---
Palliative Care Consult - Consult Details Requesting Physician: Dr Weaver Reason for Consult: goals of care Family Members Present: none at bedside - Pertinent HPI 88 year old male with intractable hiccups and altered mental status. Symptoms onset Sunday01/04/19 unresolving and confusion/ams increased and patient was taken to the emergency room for further evaluation. Evaluation in emergency room identified pneumonia and patient was admitted for observation. Palliative care consult for assistance with goals of care for patient and family in relation to chronic health condition and realistic goals paired with disease trajectory. - Pertinent PMH Dementia, hypertension, diabetes type II, dyslipidemia, Atrial Fib - Social History Smoking Status: Never smoker Smoking: no tobacco exposure Alcohol Use: none Drug Use History: none Living Situation: other - Medications MAR Reviewed: Yes - Allergies Allergies/Adverse Reactions: Allergies Allergy/AdvReac Type Severity Reaction Status Date / Time Penicillins Allergy Unknown Verified 07/27/17 20:23 - Subjective Initial visit to patient found him awake, alert and pleasant. Oriented to self, no family at bedside. Patient eating lunch, visited for a few moments and stated we would return when his daughter was present. Follow up found patient to be awake, alert to self, poor memory recall. Weakness as patient listed to the left, No family at bedside. No evidence of intractable hiccups, patient remembers they were present two days ago. ROS: Poor memory recall. Negative for pain, nausea/vomiting, denies cough or congestion. Morel cath in place draining yellow urine. Fair/poor hygiene, poor dentition. No family at bedside. - Objective Vital Signs: Vital Signs - Most Recent Temp Pulse Resp BP Pulse Ox 99.4 F 60 20 102/45 L 96 01/06/19 07:25 01/06/19 07:25 01/06/19 07:25 01/06/19 07:25 01/06/19 07:25 Palliative Performance Scale: 40 - Physical Exam Constitutional: confusion HEENT: moist MMs, EOMI Deviation from normal: diminished to bases, weak nonproductive cough Cardiovascular: irregular Gastrointestinal: soft, non-tender Musculoskeletal: no cyanosis Neurological: non-focal Psychiatric: normal affect Deviation from normal: oriented to self, aware he is in the hospital. - Problem List (1) Palliative care encounter Code(s): Z51.5 - ENCOUNTER FOR PALLIATIVE CARE Current Visit: Yes Status: Acute (2) Dementia Code(s): F03.90 - UNSPECIFIED DEMENTIA WITHOUT BEHAVIORAL DISTURBANCE Current Visit: No Status: Acute (3) Physical deconditioning Code(s): R53.81 - OTHER MALAISE Current Visit: No Status: Acute (4) Diabetes type 2, controlled Code(s): E11.9 - TYPE 2 DIABETES MELLITUS WITHOUT COMPLICATIONS Current Visit : No Status: Chronic - Plan/Recommendations Plan: *No family at bedside to discuss Mr Dickey goals for his care paired with chronic disease trajectory. *Kathie Baum Palliative Care RN to reach out to daughter to facilitate family meeting if not able to meet today. [40] minutes spent on this encounter with >50% of the time in counseling and coordination of care. Thank you for this very appropriate consult.
--- NOTE | 2019-01-06 18:48 | PRG ---
DATE OF SERVICE: 01/06/2019 SUBJECTIVE: The patient is an 88-year-old male with past medical history significant for underlying Alzheimer dementia, coronary artery disease, aortic stenosis, who presented to the hospital at the behest of his daughter with complaints of intractable hiccups and altered mental status. He has been diagnosed with community-acquired pneumonia. He has no complaints to me at this time, although does appear mildly confused on his surroundings and is not answering all of his questions appropriately. He does not complain of any chest pain or cough. He denies any further hiccups. PT consult is pending. OBJECTIVE: VITAL SIGNS: Blood pressure 102/45, pulse is 60, O2 saturation is 96% on room air, respirations are 20, and temperature 99.4. GENERAL: The patient is an elderly male, resting comfortably in bed, in no acute distress. HEENT: Head is atraumatic and normocephalic. Mucous membranes are moist. NECK: Trachea is midline. No JVD. CV: S1 and S2. Harsh systolic murmur, grade 3/6. LUNGS: Regular respiratory rate and pattern, overall clear. ABDOMEN: Positive bowel sounds. Soft and nontender. EXTREMITIES: No edema. NEUROLOGIC: Cranial nerves 2 through 12 are grossly intact. PSYCHIATRIC: The patient is oriented to person only. LABORATORY DATA: White blood cell count 11.5, hemoglobin 11.6, hematocrit 33, and platelet count is 137. Sodium 137, potassium 4.0, chloride 106, and creatinine 1.33. ASSESSMENT: 1. Community-acquired pneumonia. 2. Altered mental status, presumably secondary to above, although the patient does have underlying Alzheimer dementia. 3. Generalized weakness. 4. Intractable hiccups at presentation, resolved. 5. History of gastrointestinal bleeding. 6. Type 2 diabetes mellitus. 7. Moderate aortic stenosis, with preserved ejection fraction per echocardiogram last year. 8. History of vitamin B12 deficiency. 9. Coronary artery disease. 10. Pacemaker in-situ. PLAN: We will await physical therapy recommendations to see if the patient possibly qualifies for inpatient rehab. We will obtain repeat blood work in the morning. His white blood cell count is trending down well. We will obtain a vitamin B12 level in the morning as well. We will continue current medical management to include DuoNebs as well as IV antibiotics. Further recommendations based on hospital course. Job ID: [id number]
[2019-01-06] MEDS: Atorvastatin Calcium 40 MG TAB PO SCH (20:16)
[2019-01-06] MEDS: Gabapentin 300 MG CAP PO SCH (20:16)
[2019-01-07 06:18] LABS: #Eosinphils 0.2 thou/uL (0.0-0.7); #Monocytes 0.8 thou/uL (0.11-0.59); #Neutrophils 7.4 thou/uL (1.40-6.50); %Basophils 0.3 % (0.0-1.0); %Eosinophils 2.5 % (0.0-10.0); %Neutrophils 78.2 % (42.0-75.0); Hemoglobin 11.5 g/dL (14.0-18.0); Mean Corpuscular HGB CONC 33.6 g/dL (32.0-36.0); Mean Corpuscular Volume 92.1 fL (78.0-98.0); Mean Platelet Volume 7.8 fL (7.4-10.4); Platelet Count 145 thou/uL (130-400); RBC Distribution Width 13.2 % (11.5-14.5); Red Blood Cell (RBC) Count 3.72 mill/uL (4.70-6.10); White Blood Cell (WBC) Count 9.5 thou/uL (4.8-10.8)
[2019-01-07] MEDS: Amlodipine 5 MG TAB PO SCH (08:33)
[2019-01-07] MEDS: Carvedilol 3.125 MG TAB PO SCH ×2 (08:33→20:18)
[2019-01-07] MEDS: Finasteride 5 MG TAB PO SCH (08:33)
[2019-01-07] MEDS: Aspirin Chewable 81 MG TAB PO SCH (08:33)
[2019-01-07] MEDS: Trospium 20 MG TAB PO SCH ×2 (08:33→20:18)
[2019-01-07] MEDS: Enoxaparin Sodium 40 MG/0.4 ML SYRINGE SC SCH (08:34)
[2019-01-07] MEDS: Tamsulosin HCl 0.4 MG CAP PO SCH (08:34)
[2019-01-07] MEDS: Famotidine 20 MG TAB PO SCH (08:34)
--- NOTE | 2019-01-07 13:38 | PDOC.PALPN ---
Palliative Progress Note - Subjective Follow up from initial visit 01/06 for conversation with patient and daughter who is MPOA. Patient up, sitting in chair, sleeping. Patient ambulated today with therapy, daughter reports he had assistance but tolerated well. Discussed patient DNAR status, if there are MPOA documents. Daughter states there are copies at home and with Dr Avalos. Daughter aware of disease progression, continued weakness. Daughter states patient now uses a wheelchair when there are "out at activities". Onset of incontinence, as well as dyspahgia as noted with coughing with meals. Weakness further identified as patient was noted to be listing yesterday and daughter today states at home he has difficulty maintaining an erect position - Objective Vital Signs: Vital Signs - Most Recent Temp Pulse Resp BP Pulse Ox 98.1 F 59 L 20 135/74 97 01/07/19 07:14 01/07/19 08:33 01/07/19 07:14 01/07/19 08:33 01/07/19 07:14 - Physical Exam Constitutional: confusion HEENT: moist MMs, EOMI Respiratory: unlabored breathing Deviation from normal: intermittant irregular, murmur Gastrointestinal: soft, non-tender Musculoskeletal: pulses present Psychiatric: normal affect Deviation from normal: mild confusion - Assessment (1) Palliative care encounter Code(s): Z51.5 - ENCOUNTER FOR PALLIATIVE CARE Current Visit: Yes Status: Acute (2) Dementia Code(s): F03.90 - UNSPECIFIED DEMENTIA WITHOUT BEHAVIORAL DISTURBANCE Current Visit: No Status: Acute (3) Physical deconditioning Code(s): R53.81 - OTHER MALAISE Current Visit: No Status: Acute (4) Diabetes type 2, controlled Code(s): E11.9 - TYPE 2 DIABETES MELLITUS WITHOUT COMPLICATIONS Current Visit : No Status: Chronic - Plan Plan: *rehab to evaluate today to determine if patient is appropriate to have upon discharge *Kathie Baum to contact Dr Avalos to request copies of MPOA/advance directives *Patient daughter to bring in copies of MPOA *Revisit DNAR status/daughter states her father would not want to be resuscitated if the need arose. [60] minutes spent on this encounter with >50% of the time in counseling and coordination of care.
--- NOTE | 2019-01-07 15:29 | PDOC.HOSPP ---
- Subjective Subjective: pt up in bed no complains - Objective Vital Signs & Weight: Vital Signs (12 hours) Temp Pulse Resp BP BP Pulse Ox 01/07/19 08:33 59 L 135/74 01/07/19 07:14 98.1 F 59 L 20 135/74 97 01/07/19 05:44 94 L 01/07/19 04:08 98.2 F 60 18 119/73 94 L Weight Admit Weight 238 lb 12.8 oz Weight 238 lb 12.8 oz I&O: 01/06/19 01/07/19 01/08/19 06:59 06:59 06:59 Intake Total 420 650 Balance 420 650 Result Diagrams: 01/07/19 05:43 01/06/19 04:00 Additional Labs: Accuchecks 01/07/19 01/07/19 01/06/19 11:49 04:13 19:29 POC Glucose 139 H 110 156 H 01/06/19 16:58 POC Glucose 125 H ROS - Review of Systems All systems: All other ROS were reviewed and found negative. Respiratory: denies: cough, dry, shortness of breath, hemoptysis, SOB with excertion, pleuritic pain, sputum, wheezing, other Cardiovascular: denies: chest pain, palpitations, orthopnea, paroxysmal noc. dyspnea, edema, light headedness, other Gastrointestinal: denies: nausea, vomitting, abdominal pain, diarrhea, constipation, melena, hematochezia, other - Medication Medications: Active Medications Generic Name Dose Route Start Last Admin Trade Name Freq PRN Reason Stop Dose Admin Amlodipine Besylate 5 mg 01/06/19 09:00 01/07/19 08:33 Norvasc PO 5 mg DAILY JUAN Administration Aspirin 81 mg 01/06/19 09:00 01/07/19 08:33 Aspirin Chewable PO 81 mg DAILY JUAN Administration Atorvastatin Calcium 40 mg 01/06/19 21:00 01/06/19 20:16 Lipitor PO 40 mg HS JUAN Administration Carvedilol 3.125 mg 01/06/19 09:00 01/07/19 08:33 Coreg PO 3.125 mg BID JUAN Administration Enoxaparin Sodium 40 mg 01/06/19 09:00 01/07/19 08:34 Lovenox SC 40 mg 0900 JUAN Administration Famotidine 20 mg 01/06/19 09:00 01/07/19 08:34 Pepcid PO 20 mg DAILY JUAN Administration Finasteride 5 mg 01/06/19 09:00 01/07/19 08:33 Proscar PO 5 mg DAILY JUAN Administration Gabapentin 300 mg 01/06/19 21:00 01/06/19 20:16 Neurontin PO 300 mg HS JUAN Administration Levofloxacin 500 mg/ Device 100 mls @ 100 mls/hr 01/05/19 23:00 01/06/19 22: 22 IVPB 100 mls Q24HR JUAN Administration Senna/Docusate Sodium 2 tab 01/05/19 21:31 01/06/19 20:21 Senokot S PO 2 tab BID PRN Administration Constipation Tamsulosin HCl 0.4 mg 01/06/19 09:00 01/07/19 08:34 Flomax PO 0.4 mg DAILY JUAN Administration Trospium 20 mg 01/06/19 09:00 01/07/19 08:33 Trospium PO 20 mg BID JUAN Administration - Exam Neck: negative: supple, symmetric, no JVD, no Thyromegaly, no lymphadenopathy, no carotid bruit, JVD Heart: negative: RRR, no murmur, no gallops, no rubs, normal peripheral pulses, irregular, diminshed peripheral pulses, murmur present, II/IV, III/IV Respiratory: negative: CTAB, no wheezes, no rales, no ronchi, normal chest expansion, no tachypnea, normal percussion, rales, rhonchi, tachypneic, wheezes Hosp A/P (1) Pneumonia Code(s): J18.9 - PNEUMONIA, UNSPECIFIED ORGANISM Status: Acute (2) Dementia Code(s): F03.90 - UNSPECIFIED DEMENTIA WITHOUT BEHAVIORAL DISTURBANCE Status: Acute (3) Dyslipidemia Code(s): E78.5 - HYPERLIPIDEMIA, UNSPECIFIED Status: Chronic (4) Hypertension Code(s): I10 - ESSENTIAL (PRIMARY) HYPERTENSION Status: Chronic Qualifiers: Hypertension type: essential hypertension Qualified Code(s): I10 - Essential (primary) hypertension (5) Obesity (BMI 30.0-34.9) Code(s): E66.9 - OBESITY, UNSPECIFIED Status: Chronic - Plan will continue oral abx for now. PT to evaluate pt. pt daughter wants him to go to rehab. however she has been notified that he is obs.
[2019-01-07] MEDS: Atorvastatin Calcium 40 MG TAB PO SCH (20:18)
[2019-01-07] MEDS: Gabapentin 300 MG CAP PO SCH (20:18)
[2019-01-08] MEDS: Tamsulosin HCl 0.4 MG CAP PO SCH (08:06)
[2019-01-08] MEDS: Trospium 20 MG TAB PO SCH ×2 (08:06→20:32)
[2019-01-08] MEDS: Finasteride 5 MG TAB PO SCH (08:06)
[2019-01-08] MEDS: Aspirin Chewable 81 MG TAB PO SCH (08:07)
[2019-01-08] MEDS: Carvedilol 3.125 MG TAB PO SCH ×2 (08:07→20:32)
[2019-01-08] MEDS: Cyanocobalamin (Vitamin B-12) 1,000 MCG TAB PO SCH (08:07)
[2019-01-08] MEDS: Amlodipine 5 MG TAB PO SCH (08:07)
[2019-01-08] MEDS: Famotidine 20 MG TAB PO SCH (08:07)
[2019-01-08] MEDS: Enoxaparin Sodium 40 MG/0.4 ML SYRINGE SC SCH (08:08)
[2019-01-08] MEDS ORDERED: Cyanocobalamin 1000 MCG/ML VIAL IM SCH (09:00)
--- NOTE | 2019-01-08 15:41 | EKG ---
Test Reason : Blood Pressure : / mmHG Vent. Rate : 071 BPM Atrial Rate : 072 BPM P-R Int : 176 ms QRS Dur : 104 ms QT Int : 398 ms P-R-T Axes : 000 -50 050 degrees QTc Int : 432 ms Electronic atrial pacemaker Pulmonary disease pattern Left anterior fascicular block Septal infarct , age undetermined Abnormal ECG Confirmed by MELINDA GUTIERREZ, RAMIRO Kaba ([id number]), food editor SCHUYLER JULIAN ([id number]) on 01/08/2019 3:40:56 PM Referred By: Confirmed By:RAMIRO LAWRENCE MD
--- NOTE | 2019-01-08 17:19 | PDOC.HOSPP ---
- Subjective Subjective: pt up in bed no complains - Objective Vital Signs & Weight: Vital Signs (12 hours) Temp Pulse Resp BP BP Pulse Ox 01/08/19 08:07 62 158/78 H 01/08/19 07:23 97.8 F 62 20 158/78 H 95 Weight Admit Weight 238 lb 12.8 oz Weight 238 lb 12.8 oz I&O: 01/07/19 01/08/19 01/09/19 06:59 06:59 06:59 Intake Total 650 Balance 650 Result Diagrams: 01/07/19 05:43 01/06/19 04:00 Additional Labs: Accuchecks 01/08/19 01/08/19 01/08/19 16:42 11:19 04:10 POC Glucose 125 H 156 H 108 01/07/19 19:32 POC Glucose 203 H ROS - Review of Systems All systems: All other ROS were reviewed and found negative. Respiratory: denies: cough, dry, shortness of breath, hemoptysis, SOB with excertion, pleuritic pain, sputum, wheezing, other Cardiovascular: denies: chest pain, palpitations, orthopnea, paroxysmal noc. dyspnea, edema, light headedness, other - Medication Medications: Active Medications Generic Name Dose Route Start Last Admin Trade Name Freq PRN Reason Stop Dose Admin Amlodipine Besylate 5 mg 01/06/19 09:00 01/08/19 08:07 Norvasc PO 5 mg DAILY JUAN Administration Aspirin 81 mg 01/06/19 09:00 01/08/19 08:07 Aspirin Chewable PO 81 mg DAILY JUAN Administration Atorvastatin Calcium 40 mg 01/06/19 21:00 01/07/19 20:18 Lipitor PO 40 mg HS JUAN Administration Carvedilol 3.125 mg 01/06/19 09:00 01/08/19 08:07 Coreg PO 3.125 mg BID JUAN Administration Cyanocobalamin 1,000 mcg 01/08/19 09:00 01/08/19 08:07 Vitamin B-12 PO 1,000 mcg DAILY JUAN Administration Enoxaparin Sodium 40 mg 01/06/19 09:00 01/08/19 08:08 Lovenox SC 40 mg 0900 JUAN Administration Famotidine 20 mg 01/06/19 09:00 01/08/19 08:07 Pepcid PO 20 mg DAILY JUAN Administration Finasteride 5 mg 01/06/19 09:00 01/08/19 08:06 Proscar PO 5 mg DAILY JUAN Administration Gabapentin 300 mg 01/06/19 21:00 01/07/19 20:18 Neurontin PO 300 mg HS JUAN Administration Levofloxacin 500 mg/ Device 100 mls @ 100 mls/hr 01/05/19 23:00 01/07/19 22: 18 IVPB 100 mls Q24HR JUAN Administration Senna/Docusate Sodium 2 tab 01/05/19 21:31 01/06/19 20:21 Senokot S PO 2 tab BID PRN Administration Constipation Tamsulosin HCl 0.4 mg 01/06/19 09:00 01/08/19 08:06 Flomax PO 0.4 mg DAILY JUAN Administration Trospium 20 mg 01/06/19 09:00 01/08/19 08:06 Trospium PO 20 mg BID JUAN Administration - Exam Heart: negative: RRR, no murmur, no gallops, no rubs, normal peripheral pulses, irregular, diminshed peripheral pulses, murmur present, II/IV, III/IV Respiratory: negative: CTAB, no wheezes, no rales, no ronchi, normal chest expansion, no tachypnea, normal percussion, rales, rhonchi, tachypneic, wheezes Gastrointestinal: negative: soft, non-tender, non-distended, normal bowel sounds , no palpable masses, no hepatomegaly, no splenomegaly, no bruit, tender to palpation, distended, diminished bowl sounds, voluntary guarding Hosp A/P (1) Pneumonia Code(s): J18.9 - PNEUMONIA, UNSPECIFIED ORGANISM Status: Acute (2) Dementia Code(s): F03.90 - UNSPECIFIED DEMENTIA WITHOUT BEHAVIORAL DISTURBANCE Status: Acute (3) Dyslipidemia Code(s): E78.5 - HYPERLIPIDEMIA, UNSPECIFIED Status: Chronic (4) Hypertension Code(s): I10 - ESSENTIAL (PRIMARY) HYPERTENSION Status: Chronic Qualifiers: Hypertension type: essential hypertension Qualified Code(s): I10 - Essential (primary) hypertension (5) Obesity (BMI 30.0-34.9) Code(s): E66.9 - OBESITY, UNSPECIFIED Status: Chronic - Plan pt's daughter wants him to go to rehab. will change iv abx to oral once tolerated. awaiting bed in inpatient rehab.
[2019-01-08] MEDS: Atorvastatin Calcium 40 MG TAB PO SCH (20:32)
[2019-01-08] MEDS: Gabapentin 300 MG CAP PO SCH (20:32)
[2019-01-09] MEDS ORDERED: Levothyroxine Sodium 75 MCG TAB PO SCH (06:00)
[2019-01-09 07:54] VITALS: TEMP 97.5
[2019-01-09] MEDS: Trospium 20 MG TAB PO SCH (08:17)
[2019-01-09] MEDS: Cyanocobalamin (Vitamin B-12) 1,000 MCG TAB PO SCH (08:17)
[2019-01-09] MEDS: Carvedilol 3.125 MG TAB PO SCH (08:18)
[2019-01-09] MEDS: Famotidine 20 MG TAB PO SCH (08:18)
[2019-01-09] MEDS: Tamsulosin HCl 0.4 MG CAP PO SCH (08:18)
[2019-01-09] MEDS: Aspirin Chewable 81 MG TAB PO SCH (08:18)
[2019-01-09] MEDS: Finasteride 5 MG TAB PO SCH (08:18)
[2019-01-09] MEDS: Amlodipine 5 MG TAB PO SCH (08:19)
[2019-01-09] MEDS: Enoxaparin Sodium 40 MG/0.4 ML SYRINGE SC SCH (08:19)
[2019-01-09 12:07] LABS: Anion Gap 8 mmol/L (10-20); BUN (Urea Nitrogen) 20 mg/dL (8.4-25.7); Calc. Creatinine Clearance 48 mL/min (70-130); Calcium 9.9 mg/dL (7.8-10.44); Carbon Dioxide 32 mmol/L (23-31); Chloride 102 mmol/L (98-107); Estimated GFR-MDRD 41; Glucose 151 mg/dL (83-110); Potassium 4.4 mmol/L (3.5-5.1)
[2019-01-09 12:09] LABS: Sodium 138 mmol/L (136-145)
[2019-01-09 13:05] VITALS: BP 122/77
--- NOTE | 2019-01-10 00:27 | DIS ---
DATE OF ADMISSION: 01/05/2019 DATE OF DISCHARGE: 01/09/2019 DISCHARGE DIAGNOSES: As of the following; 1. Pneumonia. 2. Dementia. 3. Dyslipidemia. 4. Hypertension. 5. Obesity. HOSPITAL COURSE: The patient is an 88-year-old male who initially presented to the hospital with change in mental status according to the patient's daughter. The patient at this time did undergo radiographic exams, which indicated a left lower lobe pneumonia. He was put on IV antibiotics which was transitioned to oral. The patient's daughter was concerned of the patient's generalized weakness and wanted inpatient rehab. At this time, the patient was accepted at inpatient rehab and he was discharged. HOME MEDICATIONS: His home medications will be; 1. daily. 2. Carvedilol 3.125 p.o. daily. 3. Glimepiride 1 mg p.o. daily. 4. Gabapentin 300 mg p.o. at bedtime. 5. Tamsulosin 0.4 daily. 6. Levofloxacin 500 mg daily. 7. Vitamin B12 a 1000 mcg p.o. daily. 8. DuoNeb as needed. 9. Norvasc 5 mg p.o. daily. 10. Aspirin 81 mg daily. PHYSICAL EXAMINATION: VITAL SIGNS: As of the following; temperature 97.5, pulse 60, respiratory rate 20, O2 saturation 94% on room air, blood pressure 122/74. GENERAL: He is awake, alert, and oriented x3. Does not appear in any distress. CV: S1, S2 present. No murmurs, rubs, or gallops. ABDOMEN: Soft and nontender. Bowel sounds are present x2. EXTREMITIES: No edema. Of note, his creatinine was a little elevated at 1.6, however, that is kind of seems to be his baseline. Again, he will be going to rehab and he will follow up with his primary. Job ID: [id number]
== END 2019-01-09 13:05 ==
LOC: ERS 19:00 → T4-B 23:21
PROVIDERS: ADMIT Internal Medicine; ATTEND Internal Medicine
DX: J18.1 Lobar pneumonia, unspecified organism (principal); G30.9 Alzheimer's disease, unspecified; F02.80 Dementia in other diseases classified elsewhere, unspecified severity, without behavioral disturbance, psychotic disturbance, mood disturbance, and anxiety; E78.5 Hyperlipidemia, unspecified; I10 Essential (primary) hypertension; R06.6 Hiccough; E11.9 Type 2 diabetes mellitus without complications; I35.0 Nonrheumatic aortic (valve) stenosis; I25.10 Atherosclerotic heart disease of native coronary artery without angina pectoris; I48.91 Unspecified atrial fibrillation; E78.00 Pure hypercholesterolemia, unspecified; R53.81 Other malaise; N40.0 Benign prostatic hyperplasia without lower urinary tract symptoms; E66.9 Obesity, unspecified; Z68.30 Body mass index [BMI] 30.0-30.9, adult; Z51.5 Encounter for palliative care; Z86.73 Personal history of transient ischemic attack (TIA), and cerebral infarction without residual deficits; Z79.82 Long term (current) use of aspirin; Z79.84 Long term (current) use of oral hypoglycemic drugs; Z79.899 Other long term (current) drug therapy; Z88.0 Allergy status to penicillin; Z95.0 Presence of cardiac pacemaker
CPT/HCPCS: 51701; 70450; 71045; 80048 ×2; 80053; 82607; 82962 ×4; 83605; 83880; 84484; 85025 ×3; 87040; 93005; 94760; 96361; 96365; 96366 ×2; 96367; 96372 ×4; 96375; 96376 ×2; 97110; 97116 ×3; 97139 ×3; 97530 ×2; 99285; G0378 ×6; 36415; 36416; 81003; 81015; J0456; J1650; J1956; J2765